=== PATIENT | male | born 1960 | race Caucasian/White ===

== ENCOUNTER 2017-09-14 07:49 | Emergency (ER) | payer MEDICARE ==
--- NOTE | 2017-09-14 08:24 | ER Document Report ---
ED Fall - General Chief Complaint: Fall Stated Complaint: FALL/FOREHEAD LACERATION Time Seen by Provider: 09/14/17 08:23 Mode of Arrival: Ambulatory Information source: Patient TRAVEL OUTSIDE OF THE [place] IN LAST 30 DAYS: No - HPI Notes: 57 yr old male presented to the ED with complaints of laceation to forehead. Pt reports that at 0330 this morning he got up to go to the bathroom, slipped on rug and hit head directly on edge of sink. No [id number] medications have been tried. Patient does not take blood thinners. Pt reports pain 3/5. Pt has 3-4cm long, 1/4 deep linear laceration with well approximated edges on right upper forehead. Dried blood present on face. Laceration has small amount of bleeding present at this time. No swelling or bruising present at the injury site. Denies fevers, chills, chest pain,palpitations, shortness of breath, dyspnea, nausea, vomiting, diarrhea, abdominal pain, hematuria,blurred vision, double vision, loss of vision, speech changes, LH, dizziness, syncope, headaches , wheezing, ST, URI, neck pain, weakness, bowel or bladder dysfunction, saddle anesthesia, numbness or tingling in bilateral upper or lower extremities equally , muscle paralysis, weakness in bilateral upper or lower extremities equally or rash. Denies IV drug use. - Related data Allergies/Adverse Reactions: No Known Allergies Allergy (Verified 09/14/17 07:49) Past Medical History - General Information source: Patient - Social History Smoking Status: Unknown if Ever Smoked Family History: Reviewed & Not Pertinent - Past Medical History Cardiac Medical History: Reports: Hx Hypertension Denies: Hx Coronary Artery Disease, Hx Heart Attack Pulmonary Medical History: Reports: Hx Bronchitis - HX (child) Denies: Hx Asthma, Hx COPD, Hx Pneumonia Neurological Medical History: Denies: Hx Cerebrovascular Accident, Hx Seizures GI Medical History: Reports: Hx Gastroesophageal Reflux Disease. Denies: Hx Hepatitis, Hx Hiatal Hernia, Hx Ulcer Musculoskeltal Medical History: Denies Hx Arthritis Psychiatric Medical History: Reports: Hx Depression, Hx Post Traumatic Stress Disorder Infectious Medical History: Denies: Hx Hepatitis Past Surgical History: Denies: Hx Open Heart Surgery, Hx Pacemaker - Immunizations Hx Diphtheria, Pertussis, Tetanus Vaccination: Yes Review of Systems - Review of Systems Constitutional: No symptoms reported EENT: No symptoms reported Cardiovascular: No symptoms reported Respiratory: No symptoms reported Gastrointestinal: No symptoms reported Genitourinary: No symptoms reported Male Genitourinary: No symptoms reported Musculoskeletal: No symptoms reported Skin: See HPI Hematologic/Lymphatic: No symptoms reported Neurological/Psychological: No symptoms reported Physical Exam - Vital signs Vitals: Temp Pulse Resp BP Pulse Ox 98.1 F 106 H 18 115/78 98 09/14/17 08:15 09/14/17 08:15 09/14/17 08:15 09/14/17 08:15 09/14/17 08:15 - Notes Notes: PHYSICAL EXAMINATION: GENERAL: Well-appearing, well-nourished and in no acute distress. HEAD: Atraumatic, normocephalic. EYES: Pupils equal round and reactive to light, extraocular movements intact, sclera anicteric, conjunctiva are normal. ENT: Nares patent, oropharynx clear without exudates. Moist mucous membranes. NECK: Normal range of motion, supple without lymphadenopathy LUNGS: Breath sounds clear to auscultation bilaterally and equal. No wheezes rales or rhonchi. HEART: Regular rate and rhythm without murmurs ABDOMEN: Soft, nontender, nondistended abdomen. No guarding, no rebound. No masses appreciated. Musculoskeletal: Normal range of motion, no pitting or edema. No cyanosis. NEUROLOGICAL: Cranial nerves grossly intact. Normal speech, normal gait. Normal sensory, motor exams. PERRLA, EOMI. Full motor and sensory function throughout. Lathe Mechanic + 2 equal bilaterally in BUE. Tongue midline. No pronator drift. No ataxia. Neck with APROM. Raises eyebrows. Speaks in full sentences. No weakness on one side. Romberg gait steady able to walk straight line. Able to recall 5 objects. PSYCH: Normal mood, normal affect. SKIN: Warm, Dry, normal turgor, no rashes or lesions noted. 4 cm linear laceration with one fourth depth to right upper forehead. Course - Re-evaluation Re-evalutation: Discussed the results of the radiology as well as the diagnosis at great length. CT head and orbits negative for any acute findings per radiology. Discussed the need to return to the ER for any new or worsening sx. Patient understands to take the Rx as directed. All questions answered. Patient comfortable with the decision to go home. discussed concussion protocol such as being woken up every hour by someone you live with, be asked orientation questions and to call 911 if any neurological changes occur such as speech changes, weakness on one side, unable to orient, nausea, vomiting, or severe headache, etc. pt verbalized understanding of this care and agreed to plan of care. discussed worrisome symptoms as well as reasons for return over what time frame. patient states understanding and is agreeable with plan. After performing a Medical Screening Examination, I estimate there is LOW risk for INTRACRANIAL HEMORRHAGE, UNSTABLE SPINE FRACTURE, CENTRAL CORD SYNDROME, CAUDA EQUINA, THORACIC AORTIC DISSECTION, PNEUMOTHORAX, PERFORATED BOWEL, RUPTURED ABDOMINAL AORTIC ANEURYSM, ACUTE TENDON RUPTURE, COMPARTMENT SYNDROME, or OPEN FRACTURE, thus I consider the discharge disposition reasonable. Also, there is no evidence or peritonitis, sepsis, or toxicity. I have reevaluated this patient multiple times and no significant life threatening changes are noted. The patient and I have discussed the diagnosis and risks, and we agree with discharging home to follow-up with their primary doctor with the understanding that symptoms and presentations can change. We also discussed returning to the Emergency Department immediately if new or worsening symptoms occur. We have discussed the symptoms which are most concerning (e.g., bloody stool, fever, changing or worsening pain, vomiting) that necessitate immediate return. After performing a Medical Screening Examination, I estimate there is LOW risk for OPEN FRACTURE, COMPARTMENT SYNDROME, TENDON RUPTURE, ACUTE NEUROVASCULAR INJURY, or RETAINED FOREIGN BODY, thus I consider the discharge disposition reasonable. Also, there is no evidence or peritonitis, sepsis, or toxicity. I have reevaluated this patient multiple times and no significant life threatening changes are noted. The patient and I have discussed the diagnosis and risks, and we agree with discharging home with close follow-up with the understanding that symptoms and presentations can change. We also discussed returning to the Emergency Department immediately if new or worsening symptoms occur. We have discussed the symptoms which are most concerning (e.g., changing or worsening pain, fever, numbness, weakness, cool or painful digits) that necessitate immediate return. - Vital Signs Vital signs: Temp Pulse Resp BP Pulse Ox 98.3 F 84 18 120/70 98 09/14/17 10:25 09/14/17 10:25 09/14/17 10:25 09/14/17 10:25 09/14/17 10:25 Procedures - Laceration/Wound Repair Head Time completed: 09:33 Wound length (cm): 6 - vm Wound's Depth, Shape: Linear Laceration pre-procedure: Sterile PPE donned, Betadine prep applied, Sterile drapes applied Irrigated w/ Saline (mLs): 700 - mL of high pressure irrigation Wound Debrided: Minimal Wound Repaired With: Dermabond Post-procedure wound care: Sterile dressing applied Post-procedure NV exam normal: Yes Notes: 09/14/17 09:34 High-pressure irrigation was 700 and also has normal saline. no foreign bodies noted on exploration of the wound. Wound edges well approximated with Dermabond.5 Steri-Strips placed. Pt tolerated procedure without incident. Advised patient to monitor for signs and symptoms of infection such as redness, swelling, drainage, pain. Do not get Dermabond wet for the first 24 hours. Steri-Strips were naturally fall off Discharge - Discharge Clinical Impression: Laceration of head Qualifiers: Encounter type: initial encounter Location of open wound of head: other part of head Foreign body presence: without foreign body Qualified Code(s): S01.81XA - Laceration without foreign body of other part of head, initial encounter Condition: Good Disposition: HOME, SELF-CARE Instructions: Concussion ([facility]), Laceration Care ([facility]) Additional Instructions: Head Injury Your child's examination shows no evidence of brain injury. The child can therefore be safely observed at home. Give clear liquids only for the first eight hours. Acetaminophen or ibuprofen can safely be given for pain. Follow the directions on the bottle. Do not give any medication that may alter her/his level of alertness. Limit activity for the first 24 hours -- bed rest is advisable at first. Several times during the first 24 hours, check the patient to see if the pupils are equal in size to each other, that the patient is easily arousable, and responds normally. Contact your doctor or go to the hospital if any of the following things occur: Persistent or projectile vomiting, a seizure, confusion , unequal pupil size, difficulty in arousing the patient, worsening or continued headache, or failure to improve as expected. Dermabond (Skin Adhesive Closure) Skin adhesive (such as Dermabond) is a quick-drying glue that remains slightly flexible while it holds wound edges together. It can substitute for stitches on some cuts. The film will usually fall off the skin after 5 to 10 days. Keep the wound area clean and dry. Do not soak or scrub the wound. Don't swim. You can shower briefly after 24 hours. Gently blot the area dry with a soft towel. Don't apply ointments. If there is a dressing, change it immediately if it gets wet. Do not place tape directly over the adhesive film, because the tape may pull the film off your skin as you remove it. Don't bump the wound area. If there's risk of injury, keep the area well- padded. Avoid stretching of the skin. Do not scratch or pick at the adhesive film. Avoid prolonged exposure to sunlight or tanning lamps. Return if there is increasing pain, swelling, redness, or drainage, or if the wound edges seem to open or separate. Take antibiotic as directed with food. Have a wound check within 3 days. Take ibuprofen and Tylenol as needed. Return immediately for any new or worsening symptoms. Follow up with primary care provider, call tomorrow to make followup appointment. Prescriptions: Sulfamethoxazole/Trimethoprim [Bactrim Ds Tablet] 1 each PO BID #20 tablet Sulfamethoxazole/Trimethoprim [Bactrim Ds Tablet] 1 each PO BID #14 tablet Referrals: VALERIY BRYANT DO [Primary Care Provider] - Follow up in 3-5 days JASKARAN GARCIA MD [ACTIVE STAFF] - Follow up as needed
--- NOTE | 2017-09-14 09:24 | RADIOLOGY REPORT (SQ) ---
EXAM DESCRIPTION: CT HEAD WITHOUT COMPLETED DATE/TIME: 09/14/2017 9:04 am REASON FOR STUDY: s/p fall on forehead + lac. COMPARISON: CT facial bones same date TECHNIQUE: Axial images acquired through the brain without intravenous contrast. Images reviewed wi th bone, brain and subdural windows. Images stored on PACS. All CT scanners at this facility use dose modulation, iterative reconstruction, and/or weight based d osing when appropriate to reduce radiation dose to as low as reasonably achievable (ALARA). [facility]: Dose Right [facility]: CareDose [facility]: Dose Right [facility]: Teradose 4D [facility]: Smart ALCOHOOT RADIATION DOSE: CT Rad equipment meets quality standard of care and radiation dose reduction techniq ues were employed. CTDIvol: 64.3 mGy. DLP: 1034 mGy-cm. mGy. LIMITATIONS: Motion artifact throughout the study FINDINGS: Motion artifact throughout the study. On images without motion artifact, there is no gross acute intracranial hemorrhage, mass effect, or m idline shift. No gross CT evidence of acute large territory ischemic change. Bone windows are unremarkable IMPRESSION: Motion artifact. Limited negative study EVIDENCE OF ACUTE STROKE: NO. COMMENT: Quality ID # [id number]: Final reports with documentation of one or more dose reduction techniques (e.g., Automated exposure control, adjustment of the mA and/or kV according to patient size, use of iterative reconstruction technique) TECHNICAL DOCUMENTATION: JOB ID: [id number] [employer]- All Rights Reserved
--- NOTE | 2017-09-14 09:26 | RADIOLOGY REPORT (SQ) ---
EXAM DESCRIPTION: CT FACIAL AREA WITHOUT COMPLETED DATE/TIME: 09/14/2017 9:04 am REASON FOR STUDY: forehead and bilateral orbits COMPARISON: CT brain same date TECHNIQUE: Noncontrasted images through the facial bones and orbits windowed for bone and soft tissu e. Additional coronal and sagittal reconstructed images reviewed. All images stored on PACS. All CT scanners at this facility use dose modulation, iterative reconstruction, and/or weight based d osing when appropriate to reduce radiation dose to as low as reasonably achievable (ALARA). [facility]: Dose Right [facility]: CareDose [facility]: Dose Right [facility]: Teradose 4D [facility]: Smart [employer] RADIATION DOSE: CT Rad equipment meets quality standard of care and radiation dose reduction techniq ues were employed. CTDIvol: 30.4 mGy. DLP: 606 mGy-cm. mGy. LIMITATIONS: None. FINDINGS: FACIAL BONES: No fracture or bone lesion. ORBITS: Intact. No fracture. Symmetric intact globes and retroorbital soft tissues. PARANASAL SINUSES: Clear. No significant mucosal thickening, mass or fluid. No nasal polyps. Maxill len sinus outlets are patent. Developmentally small right maxillary sinus, a normal variant. SOFT TISSUES: No mass or edema. INFERIOR BRAIN: Limited view. No acute findings. OTHER: Rightward nasal septal deviation. Old C3-4 discectomy and fusion with high-grade right C3-4 f oraminal narrowing from facet and uncovertebral hypertrophy IMPRESSION: NO ACUTE FINDINGS. TECHNICAL DOCUMENTATION: JOB ID: [id number] Quality ID # [id number]: Final reports with documentation of one or more dose reduction techniques (e.g., Au tomated exposure control, adjustment of the mA and/or kV according to patient size, use of iterative reconstruction technique) 2010 [employer]- All Rights Reserved
[2017-09-14] MEDS ORDERED: DIPH/PERTUSS(ACELL)/TETANUS VAC/PF 0.5 ML SYR (>=10YO) IM ONE (09:36)
[2017-09-14 10:26] VITALS: BP 120/70
== END 2017-09-14 10:26 | disposition home or self-care (01) ==
LOC: ER 07:49
PROC: 0HQ0XZZ Repair Scalp Skin, External Approach (ICD-10-PCS; principal; 2017-09-14)
DX: S01.81XA Laceration without foreign body of other part of head, initial encounter (principal); W01.0XXA Fall on same level from slipping, tripping and stumbling without subsequent striking against object, initial encounter
CPT/HCPCS: 70450; 70486; 90471; 90715; 99283

== ENCOUNTER 2019-09-29 15:44 | Inpatient (IN) | payer MEDICARE ==
--- NOTE | 2019-09-29 16:15 | ER Document Report ---
ED General - General Chief Complaint: Back Pain Stated Complaint: BACK PAIN Time Seen by Provider: 09/29/19 16:14 Primary Care Provider: VALERIY BRYANT DO [NO LOCAL MD] - Follow up as needed TRAVEL OUTSIDE OF THE [place] IN LAST 30 DAYS: No - HPI Patient complains to provider of: Back pain Notes: 59-year-old man suffers from chronic back pain presents today with an exacerbation of his chronic condition endorsing 10/10 sharp right-sided back pain with radiation to the posterior aspect of his right thigh. Nothing makes the pain better or worse. Patient endorsed increasing general weakness as well as this pain. So weak he was unable to get out of bed today. Patient is followed by pain management. Has recently had injections to his lower back that helped. Patient was scheduled to see pain management today. But unable to make it to the appointment secondary to pain and weakness. Patient denies saddle anesthesia, fever, chills, trauma to his back. Patient does not take any blood thinners or use IV drugs Patient has history of COPD and is an everyday smoker 1 pack per day. Has no travel history, no sick contacts - Related Data Allergies/Adverse Reactions: No Known Allergies Allergy (Verified 09/14/17 07:49) Past Medical History - Social History Smoking Status: Current Every Day Smoker Family History: Reviewed & Not Pertinent - Past Medical History Cardiac Medical History: Reports: Hx Hypertension Denies: Hx Coronary Artery Disease, Hx Heart Attack Pulmonary Medical History: Reports: Hx Bronchitis - HX (child) Denies: Hx Asthma, Hx COPD, Hx Pneumonia Neurological Medical History: Denies: Hx Cerebrovascular Accident, Hx Seizures Renal/ Medical History: Denies: Hx Peritoneal Dialysis GI Medical History: Reports: Hx Gastroesophageal Reflux Disease. Denies: Hx Hepatitis, Hx Hiatal Hernia, Hx Ulcer Musculoskeletal Medical History: Denies Hx Arthritis Psychiatric Medical History: Reports: Hx Depression, Hx Post Traumatic Stress Disorder Infectious Medical History: Denies: Hx Hepatitis Past Surgical History: Denies: Hx Open Heart Surgery, Hx Pacemaker - Immunizations Hx Diphtheria, Pertussis, Tetanus Vaccination: Yes Review of Systems - Review of Systems Notes: REVIEW OF SYSTEMS: CONSTITUTIONAL: -fevers, -chills , positive weakness EENT: -eye pain, -difficulty swallowing, -nasal congestion CARDIOVASCULAR: -chest pain, -syncope. RESPIRATORY: -cough, -SOB GASTROINTESTINAL: -abdominal pain, -nausea, -vomiting, -diarrhea GENITOURINARY: -dysuria, -hematuria MUSCULOSKELETAL: positive back pain, -neck pain SKIN: -rash or skin lesions. HEMATOLOGIC: -easy bruising or bleeding. LYMPHATIC: -swollen, enlarged glands. NEUROLOGICAL: -altered mental status or loss of consciousness, -headache, - neurologic symptoms PSYCHIATRIC: -anxiety, -depression. ALL OTHER SYSTEMS REVIEWED AND NEGATIVE. Constitutional: No symptoms reported EENT: No symptoms reported Cardiovascular: No symptoms reported Respiratory: No symptoms reported Gastrointestinal: No symptoms reported Genitourinary: No symptoms reported Male Genitourinary: No symptoms reported Musculoskeletal: Back pain Skin: No symptoms reported Hematologic/Lymphatic: No symptoms reported Neurological/Psychological: No symptoms reported Physical Exam - Vital signs Vitals: Resp Pulse Ox 22 H 91 L 09/29/19 15:57 09/29/19 15:57 Interpretation: Normal - General General appearance: Appears well, Alert - HEENT Head: Normocephalic, Atraumatic Eyes: Normal Pupils: PERRL - Respiratory Respiratory status: No respiratory distress Chest status: Nontender Breath sounds: Normal Chest palpation: Normal - Cardiovascular Rhythm: Regular Heart sounds: Normal auscultation Murmur: No - Abdominal Inspection: Normal Distension: No distension Bowel sounds: Normal Tenderness: Nontender Organomegaly: No organomegaly - Back Back: Normal, Nontender - Extremities General upper extremity: Normal inspection, Nontender, Normal color, Normal ROM, Normal temperature General lower extremity: Normal inspection, Nontender, Normal color, Normal ROM, Normal temperature, Normal weight bearing. No: Berry's sign - Neurological Neuro grossly intact: Yes Cognition: Normal Orientation: AAOx4 [place] Coma Scale Eye Opening: Spontaneous [place] Coma Scale Verbal: Oriented [place] Coma Scale Motor: Obeys Commands [place] Coma Scale Total: 15 Speech: Normal Motor strength normal: LUE, RUE, LLE, RLE Sensory: Normal - Psychological Associated symptoms: Normal affect, Normal mood - Skin Skin Temperature: Warm Skin Moisture: Dry Skin Color: Normal Course - Re-evaluation Re-evalutation: 09/29/19 16:23 59-year-old male presents with his fatigue and tachycardia will give fluid resuscitation analgesia and IV steroids. Will order lab work as well including CPK. No focal or neurologic deficits, no red flags for back pain. Denies IV drug use 09/29/19 19:15 Patient has no history of travel or fever. Only endorsing myalgias and weakness with back pain. Patient found to have profound leukocytosis, mild elevation in CPK And a lactic acidosis of 2.8. Blood cultures pending at this time. Chest x-ray finds pneumonia right lower lung lobe. Suspect this could be the etiology of his pain. Started on ceftriaxone and IV azithromycin. Will be admitted to the hospital for further management - Vital Signs Vital signs: Temp Pulse Resp BP Pulse Ox 98.3 F 23 H 111/69 91 L 09/29/19 19:05 09/29/19 17:02 09/29/19 17:02 09/29/19 17:02 - Laboratory Result Diagrams: 09/29/19 06:05 09/29/19 06:05 Laboratory results interpreted by me: 09/29/19 09/29/19 09/29/19 06:05 06:05 17:33 WBC 25.9 H RBC 4.13 L Hgb 12.6 L Hct 37.1 L RDW 15.7 H Seg Neuts % (Manual) 80 H Band Neutrophils % 8 H Lymphocytes % (Manual) 8 L Abs Neuts (Manual) 22.8 H Glucose 152 H Lactic Acid Creatine Kinase 384 H Urine Glucose (UA) 50 H 09/29/19 18:20 WBC RBC Hgb Hct RDW Seg Neuts % (Manual) Band Neutrophils % Lymphocytes % (Manual) Abs Neuts (Manual) Glucose Lactic Acid 2.8 H Creatine Kinase Urine Glucose (UA) Discharge - Discharge Clinical Impression: Weakness Back pain Qualifiers: Back pain location: low back pain Chronicity: chronic Back pain laterality: unspecified Sciatica presence: unspecified whether sciatica present Qualified C ode(s): M54.5 - Low back pain Pneumonia Qualifiers: Pneumonia type: due to unspecified organism Laterality: right Lung location: lower lobe of lung Qualified Code(s): J18.9 - Pneumonia, unspecified organism Condition: Serious Disposition: ADMITTED INPATIENT Admitting Provider: Gomez (Hospitalist) Unit Admitted: Medical Floor Referrals: VALERIY BRYANT DO [NO LOCAL MD] - Follow up as needed
[2019-09-29] MEDS ORDERED: HYDROMORPHONE HCL INJ/PF 2 MG/ML AMPULE IV ONE (16:19)
[2019-09-29] MEDS ORDERED: DEXAMETHASONE SOD PHOS INJ 10 MG/1 ML VIAL IV ONE (16:19)
[2019-09-29] MEDS ORDERED: NORMAL SALINE 1000 ML 1,000 ML IV ONE ×2 (16:19→17:31)
[2019-09-29 16:40] LABS: HEMATOCRIT 37.1 % (37.9-51.0); HEMOGLOBIN 12.6 g/dL (13.5-17.0); MEAN CORPUSCULAR HEMOGLOBIN 30.5 pg (27.0-33.4); MEAN CORPUSCULAR HGB CONC 33.9 g/dL (32.0-36.0); MEAN CORPUSCULAR VOLUME 90 fl (80-97); PLATELET COUNT 361 10^3/uL (150-450); RED BLOOD COUNT 4.13 10^6/uL (4.35-5.55); RED CELL DISTRIBUTION WIDTH 15.7 % (11.5-14.0); WHITE BLOOD COUNT 25.9 10^3/uL (4.0-10.5)
[2019-09-29 16:41] LABS: ANION GAP 13 (5-19); BLOOD UREA NITROGEN 18 mg/dL (7-20); CALCIUM 8.7 mg/dL (8.4-10.2); CARBON DIOXIDE 23 mmol/L (22-30); CHLORIDE 103 mmol/L (98-107); CREATINE KINASE 384 U/L (55-170); GLUCOSE 152 mg/dL (75-110); POTASSIUM 3.7 mmol/L (3.6-5.0)
[2019-09-29 17:11] LABS: ABSOLUTE LYMPHOCYTES# (MANUAL) 2.3 10^3/uL (0.5-4.7); ABSOLUTE MONOCYTES # (MANUAL) 0.8 10^3/uL (0.1-1.4); BAND NEUTROPHILS % (MANUAL) 8 % (3-5); BASOPHILS % (MANUAL) 0 % (0-2); EOSINOPHILS % (MANUAL) 0 % (0-6); LYMPHOCYTES % (MANUAL) 8 % (13-45); MONOCYTES % (MANUAL) 3 % (3-13); SEGMENTED NEUTROPHILS % (MAN) 80 % (42-78); TOTAL CELLS COUNTED 100
[2019-09-29 17:12] LABS: TOXIC GRANULATION SLIGHT
[2019-09-29 17:13] LABS: ANISOCYTOSIS SLIGHT; PLATELET COMMENT ADEQUATE; TOXIC VACUOLATION PRESENT
[2019-09-29 17:48] LABS: APPEARANCE,URINE CLEAR; BILIRUBIN,URINE NEGATIVE (NEGATIVE); COLOR,URINE YELLOW; GLUCOSE, URINE 50 mg/dL (NEGATIVE); KETONES,URINE NEGATIVE (NEGATIVE); PROTEIN,URINE NEGATIVE (NEGATIVE); URINE SPECIFIC GRAVITY 1.021; UROBILINOGEN,URINE NEGATIVE mg/dL (<2.0)
--- NOTE | 2019-09-29 18:28 | RADIOLOGY REPORT (SQ) ---
EXAM DESCRIPTION: CHEST SINGLE VIEW COMPLETED DATE/TIME: 09/29/2019 5:45 pm REASON FOR STUDY: sob COMPARISON: 02/18/2014 EXAM PARAMETERS: NUMBER OF VIEWS: One view. TECHNIQUE: Single frontal radiographic view of the chest acquired. RADIATION DOSE: NA LIMITATIONS: None. FINDINGS: LUNGS AND PLEURA: Patchy airspace opacities in the right lung base. No definite pleural e ffusions. MEDIASTINUM AND HILAR STRUCTURES: No masses. Contour normal. HEART AND VASCULAR STRUCTURES: Heart normal in size. Normal vasculature. BONES: No acute findings. HARDWARE: None in the chest. OTHER: No other significant finding. IMPRESSION: Patchy airspace opacities in the right lung base, consistent with pneumonia in the corre ct clinical setting. TECHNICAL DOCUMENTATION: JOB ID: [id number] 2010 [employer]- All Rights Reserved Reading location - IP/workstation name: [email or web address]
[2019-09-29] MEDS ORDERED: CEFTRIAXONE 2 GM/D5W RTU 2 GM/50 ML RTUPB IV ONE (18:36)
[2019-09-29] MEDS ORDERED: AZITHROMYCIN INJ 500 MG VIAL IV ONE (18:37)
[2019-09-29] MEDS ORDERED: IPRATROPIUM/ALBUTEROL 0.5-2.5 MG/3 ML AMPUL NEB PRN (19:13)
[2019-09-29] MEDS ORDERED: NORMAL SALINE 1000 ML 1,000 ML IV SCH (19:15)
[2019-09-29] MEDS ORDERED: DEXTROSE 40% GEL 15 GM TUBE PO PRN ×2 (19:18)
[2019-09-29] MEDS ORDERED: GLUCAGON,HUMAN RECOMB 1 MG INJ IM PRN (19:18)
[2019-09-29] MEDS ORDERED: DEXTROSE 50%-WATER 25 GM/50 ML DISP.SYRIN IV PRN ×2 (19:18)
[2019-09-29] MEDS ORDERED: HYDRALAZINE HCL INJ/PF 20 MG/1 ML SDV IV PRN (19:19)
[2019-09-29] MEDS: INSULIN LISPRO 100 UNIT/ML 3 ML VIAL SUBCUT SCH (19:43)
[2019-09-29] MEDS: KETOROLAC TROMETHAMINE INJ/PF 30 MG/1 ML SDV IV PRN (19:54)
[2019-09-29] MEDS: GUAIFENESIN 600 MG TABLET.SA PO SCH (23:32)
[2019-09-29] MEDS: TRAZODONE HCL 50 MG TABLET PO PRN (23:32)
[2019-09-29] MEDS: ACETAMINOPHEN 325 MG TABLET PO PRN (23:32)
[2019-09-29] MEDS: ALPRAZOLAM 0.25 MG TABLET PO PRN (23:32)
[2019-09-29] MEDS: HEPARIN SOD (PORCINE) 5,000 UNIT/ML 1 ML VIAL SUBCUT SCH (23:33)
[2019-09-29] MEDS: FLUTICASONE NASAL SPRAY 50 MCG/SPRY 120 SPRAY/16 GM NASL SCH (23:33)
[2019-09-30] MEDS ORDERED: NICOTINE 7 MG/24 HR PATCH.TD24 TD ONE (00:15)
[2019-09-30] MEDS: IPRATROPIUM/ALBUTEROL 0.5-2.5 MG/3 ML AMPUL NEB SCH ×3 (00:34→16:32)
[2019-09-30] MEDS: KETOROLAC TROMETHAMINE INJ/PF 30 MG/1 ML SDV IV PRN ×3 (01:56→22:16)
--- NOTE | 2019-09-30 03:45 | PDOC H&P ---
History of Present Illness Admission Date/PCP: 09/29/19 19:24 Patient complains of: Back pain and fatigue History of Present Illness: SEAMUS COBURN is a 59 year old male with a past medical history of chronic low back pain, COPD, chronic bronchitis and tobacco dependence. He presents with shortness of breath and a nonproductive cough as well as exacerbation of his chronic low back pain. In the emergency room he is found to have tachypnea, nonproductive cough, leukocytosis with bandemia and right-sided lung patchy infiltrate. He started on empiric antibiotics and referred to the hospitalist for admission. He denies recent antibiotics, he denies recent travel, exposure to known coronavirus. Past Medical History Cardiac Medical History: Reports: Hypertension Denies: Coronary Artery Disease, Myocardial Infarction Pulmonary Medical History: Reports: Bronchitis - HX (child), Chronic Obstructive Pulmonary Disease (COPD) Denies: Asthma, Pneumonia Neurological Medical History: Denies: Seizures Endocrine Medical History: Reports: Diabetes Mellitus Type 2 GI Medical History: Reports: Gastroesophageal Reflux Disease Denies: Hepatitis, Hiatal Hernia Musculoskeltal Medical History: Denies: Arthritis Psychiatric Medical History: Reports: Depression, Post Traumatic Stress Disorder, Tobacco Dependency Hematology: Denies: Anemia, Sickle Cell Disease Past Surgical History Past Surgical History: Reports: Orthopedic Surgery - r knee, r hand, disc surgery 03/2019 Denies: Pacemaker Social History Information Source: Patient Smoking Status: Current Every Day Smoker Electronic Cigarette use?: No Frequency of Alcohol Use: Occasional Hx Recreational Drug Use: No Drugs: None Hx Prescription Drug Abuse: No - Advance Directive Resuscitation Status: Full Code Family History Family History: Hypertension Parental Family History Reviewed: Yes Children Family History Reviewed: Yes Sibling(s) Family History Reviewed.: Yes Medication/Allergy Home Medications: Alprazolam 0.5 mg PO BIDP PRN MDD 2 MG 09/29/19 Bupropion HCl [Bupropion Xl] 150 mg PO DAILY 09/29/19 Fluoxetine HCl [Prozac 20 mg Capsule] 60 mg PO DAILY 09/29/19 Gabapentin [Neurontin 300 mg Capsule] 300 mg PO QID 09/29/19 Lisinopril/Hydrochlorothiazide [Lisinopril-Hctz 20-12.5 mg Tab] 1 each PO DAILY 09/29/19 Meloxicam [Mobic 15 mg Tablet] 15 mg PO DAILY 09/29/19 Metformin HCl [Glucophage 500 mg Tablet] 1,000 mg PO BIDACBS 09/29/19 Omeprazole 20 mg PO DAILY 09/29/19 Trazodone HCl [Desyrel 50 mg Tablet] 100 mg PO HSP PRN MDD 200 MG 09/29/19 Allergies/Adverse Reactions: No Known Allergies Allergy (Verified 09/14/17 07:49) Review of Systems Constitutional: ABSENT: chills, fever(s), headache(s), weight gain, weight loss Eyes: ABSENT: visual disturbances Ears: ABSENT: hearing changes Cardiovascular: ABSENT: chest pain, dyspnea on exertion, edema, orthropnea, palpitations Respiratory: PRESENT: as per HPI, cough. ABSENT: hemoptysis, sputum Gastrointestinal: ABSENT: abdominal pain, constipation, diarrhea, hematemesis, hematochezia, nausea, vomiting Genitourinary: ABSENT: dysuria, hematuria Musculoskeletal: ABSENT: joint swelling Integumentary: ABSENT: rash, wounds Neurological: ABSENT: abnormal gait, abnormal speech, confusion, dizziness, focal weakness, syncope Psychiatric: ABSENT: anxiety, depression, homidical ideation, suicidal ideation Endocrine: ABSENT: cold intolerance, heat intolerance, polydipsia, polyuria Hematologic/Lymphatic: ABSENT: easy bleeding, easy bruising Physical Exam Vital Signs: Temp Pulse Resp BP Pulse Ox 98.1 F 91 16 153/86 H 98 09/30/19 00:23 09/30/19 02:00 09/30/19 00:30 09/30/19 00:23 09/30/19 00:44 Intake & Output 09/28/19 09/29/19 09/30/19 11:59 11:59 11:59 Intake Total 2307 Output Total 0 Balance 2307 Weight 88.1 kg General appearance: PRESENT: cooperative, mild distress, well-developed, well- nourished Head exam: PRESENT: atraumatic, normocephalic Eye exam: PRESENT: conjunctiva pink, EOMI, PERRLA. ABSENT: scleral icterus Ear exam: PRESENT: normal external ear exam Mouth exam: PRESENT: moist, tongue midline Neck exam: ABSENT: carotid bruit, JVD, lymphadenopathy, thyromegaly Respiratory exam: PRESENT: accessory muscle use, clear to auscultation glen, crackles, prolonged expiratory phas, retraction, rhonchi. ABSENT: rales, wheezes Cardiovascular exam: PRESENT: RRR. ABSENT: diastolic murmur, rubs, systolic murmur Pulses: PRESENT: normal dorsalis pedis pul Vascular exam: PRESENT: normal capillary refill GI/Abdominal exam: PRESENT: normal bowel sounds, soft. ABSENT: distended, guarding, mass, organolmegaly, rebound, tenderness Rectal exam: PRESENT: deferred Extremities exam: PRESENT: full ROM. ABSENT: calf tenderness, clubbing, pedal edema Neurological exam: PRESENT: alert, awake, oriented to person, oriented to place, oriented to time, oriented to situation, CN II-XII grossly intact. ABSENT: motor sensory deficit Psychiatric exam: PRESENT: appropriate affect, normal mood. ABSENT: homicidal i deation, suicidal ideation Skin exam: PRESENT: dry, intact, warm. ABSENT: cyanosis, rash Results Laboratory Results: 09/29/19 06:05 09/29/19 06:05 09/29/19 09/29/19 09/29/19 06:05 06:05 17:33 WBC 25.9 H RBC 4.13 L Hgb 12.6 L Hct 37.1 L MCV 90 MCH 30.5 MCHC 33.9 RDW 15.7 H Plt Count 361 Seg Neutrophils % Not Reportable Sodium 138.5 Potassium 3.7 Chloride 103 Carbon Dioxide 23 Anion Gap 13 BUN 18 Creatinine 0.81 Est GFR ( Amer) > 60 Glucose 152 H Lactic Acid Calcium 8.7 Urine Color YELLOW Urine Appearance CLEAR Urine pH 5.0 Ur Specific [place] 1.021 Urine Protein NEGATIVE Urine Glucose (UA) 50 H Urine Ketones NEGATIVE Urine Blood NEGATIVE Urine RBC (Auto) 0 09/29/19 18:20 WBC RBC Hgb Hct MCV MCH MCHC RDW Plt Count Seg Neutrophils % Sodium Potassium Chloride Carbon Dioxide Anion Gap BUN Creatinine Est GFR ( Amer) Glucose Lactic Acid 2.8 H Calcium Urine Color Urine Appearance Urine pH Ur Specific [place] Urine Protein Urine Glucose (UA) Urine Ketones Urine Blood Urine RBC (Auto) 09/29/19 06:05 Creatine Kinase 384 H Impressions: Chest X-Ray 09/29/19 17:35 IMPRESSION: Patchy airspace opacities in the right lung base, consistent with pneumonia in the correct clinical setting. Assessment and Plan - Diagnosis (1) Pneumonia Qualifiers: Pneumonia type: due to unspecified organism Laterality: right Lung location: lower lobe of lung Qualified Code(s): J18.9 - Pneumonia, unspecified organism Is this a current diagnosis for this admission?: Yes Plan: Complicated by COPD, chronic bronchitis and tobacco dependence. Pneumonia care set deployed, incentive spirometry and flutter valve, follow-up blood culture and CBC (2) Bandemia Is this a current diagnosis for this admission?: Yes Plan: Secondary to #1, empiric antibiotics initiated, follow-up CBC and blood culture (3) Back pain Qualifiers: Back pain location: low back pain Chronicity: chronic Back pain laterality: unspecified Sciatica presence: unspecified whether sciatica present Qualified Code(s): M54.5 - Low back pain; G89.29 - Other chronic pain Is this a current diagnosis for this admission?: Yes Plan: Exacerbation likely secondary to #1, no focal vertebral tenderness (4) Weakness Is this a current diagnosis for this admission?: Yes Plan: Secondary to #1, supportive care, assistance with transfer, consider physical therapy (5) Diabetes 1.5, managed as type 2 Is this a current diagnosis for this admission?: Yes Plan: Follow-up outpatient medication reconciliation, avoid metformin, Humalog sliding scale ordered. - Time Time Spent with patient: 25-34 minutes - Inpatient Certification Medical Necessity: Need Close Monitoring Due to Risk of Patient Decompensation
[2019-09-30] MEDS: HEPARIN SOD (PORCINE) 5,000 UNIT/ML 1 ML VIAL SUBCUT SCH ×3 (05:00→22:18)
[2019-09-30] MEDS: PANTOPRAZOLE SODIUM 20 MG TABLET.DR PO SCH (05:01)
[2019-09-30 05:39] LABS: HEMATOCRIT 33.1 % (37.9-51.0); HEMOGLOBIN 11.4 g/dL (13.5-17.0); MEAN CORPUSCULAR HEMOGLOBIN 30.8 pg (27.0-33.4); MEAN CORPUSCULAR HGB CONC 34.4 g/dL (32.0-36.0); MEAN CORPUSCULAR VOLUME 90 fl (80-97); PLATELET COUNT 275 10^3/uL (150-450); RED CELL DISTRIBUTION WIDTH 15.8 % (11.5-14.0); WHITE BLOOD COUNT 21.7 10^3/uL (4.0-10.5)
[2019-09-30 06:03] LABS: ANION GAP 10 (5-19); BLOOD UREA NITROGEN 20 mg/dL (7-20); CALCIUM 7.8 mg/dL (8.4-10.2); CARBON DIOXIDE 25 mmol/L (22-30); CHLORIDE 104 mmol/L (98-107); GLUCOSE 119 mg/dL (75-110); POTASSIUM 3.6 mmol/L (3.6-5.0)
[2019-09-30 06:22] LABS: ABSOLUTE LYMPHOCYTES# (MANUAL) 1.3 10^3/uL (0.5-4.7); ABSOLUTE MONOCYTES # (MANUAL) 1.1 10^3/uL (0.1-1.4); BAND NEUTROPHILS % (MANUAL) 1 % (3-5); BASOPHILS % (MANUAL) 0 % (0-2); EOSINOPHILS % (MANUAL) 0 % (0-6); LYMPHOCYTES % (MANUAL) 6 % (13-45); MONOCYTES % (MANUAL) 5 % (3-13); SEGMENTED NEUTROPHILS % (MAN) 88 % (42-78); TOTAL CELLS COUNTED 100
[2019-09-30 06:23] LABS: TOXIC GRANULATION SLIGHT
[2019-09-30 06:24] LABS: ANISOCYTOSIS SLIGHT; PLATELET COMMENT ADEQUATE
[2019-09-30] MEDS ORDERED: METFORMIN HCL 500 MG TABLET PO SCH (08:00)
[2019-09-30] MEDS: INSULIN LISPRO 100 UNIT/ML 3 ML VIAL SUBCUT SCH ×3 (08:14→15:51)
[2019-09-30] MEDS: ACETAMINOPHEN 325 MG TABLET PO PRN (09:03)
[2019-09-30] MEDS: GABAPENTIN 300 MG CAPSULE PO SCH ×4 (09:03→22:17)
[2019-09-30] MEDS: GUAIFENESIN 600 MG TABLET.SA PO SCH ×2 (09:04→22:17)
[2019-09-30] MEDS: NICOTINE 7 MG/24 HR PATCH.TD24 TD SCH (09:04)
[2019-09-30] MEDS: FLUOXETINE HCL 20 MG CAPSULE PO SCH (09:04)
[2019-09-30] MEDS: BUPROPION HCL 75 MG TABLET PO SCH ×2 (09:04→22:17)
[2019-09-30] MEDS: FLUTICASONE NASAL SPRAY 50 MCG/SPRY 120 SPRAY/16 GM NASL SCH ×2 (09:05→22:20)
[2019-09-30] MEDS: CEFTRIAXONE 1 GM/D5W RTU 1 GM/50 ML RTUPB IV SCH (09:25)
--- NOTE | 2019-09-30 11:07 | PDOC PROGRESS REPORT ---
Subjective Progress Note for:: 09/30/19 Subjective:: 59 year old male with a past medical history of chronic low back pain, COPD, chronic bronchitis and tobacco dependence. He presents with shortness of breath and a nonproductive cough as well as exacerbation of his chronic low back pain. In the emergency room he is found to have tachypnea, nonproductive cough, leukocytosis with bandemia and right-sided lung patchy infiltrate. He started on empiric antibiotics and referred to the hospitalist for admission. He denies recent antibiotics, he denies recent travel, exposure to known coronavirus. 09/[id number] male with chronic lower back pain, COPD, chronic bronchitis, chronic smoker admitted with shortness of breath and nonproductive cough. He was found to be tachycardic tachypneic with elevated WBC count and chest x-ray indicated above right base pneumonia. He was admitted for antibiotic therapy. Reason For Visit: COPD EXACERBATION,PNEUMONIA Physical Exam Vital Signs: Temp Pulse Resp BP Pulse Ox 97.9 F 72 16 145/93 H 94 09/30/19 07:12 09/30/19 08:00 09/30/19 08:00 09/30/19 07:12 09/30/19 08:00 Intake & Output 09/29/19 09/30/19 10/01/19 06:59 06:59 06:59 Intake Total 2527 50 Output Total 0 Balance 2527 50 Weight 90.6 kg General appearance: PRESENT: no acute distress, obese, well-developed Head exam: PRESENT: atraumatic Eye exam: PRESENT: PERRLA Mouth exam: PRESENT: moist, tongue midline Teeth exam: PRESENT: poor dentation Neck exam: ABSENT: carotid bruit, JVD, lymphadenopathy, thyromegaly Respiratory exam: PRESENT: decreased breath sounds Cardiovascular exam: PRESENT: RRR. ABSENT: diastolic murmur, rubs, systolic murmur Pulses: PRESENT: normal dorsalis pedis pul GI/Abdominal exam: PRESENT: normal bowel sounds, soft. ABSENT: distended, guarding, mass, organolmegaly, rebound, tenderness Rectal exam: PRESENT: deferred Extremities exam: PRESENT: full ROM. ABSENT: calf tenderness, clubbing, pedal edema Neurological exam: PRESENT: alert, awake, oriented to person, oriented to place, oriented to time, oriented to situation, CN II-XII grossly intact. ABSENT: motor sensory deficit Psychiatric exam: PRESENT: appropriate affect, normal mood. ABSENT: homicidal ideation, suicidal ideation Results Laboratory Results: 09/30/19 03:51 09/30/19 03:51 09/29/19 09/29/19 09/29/19 06:05 06:05 17:33 WBC 25.9 H RBC 4.13 L Hgb 12.6 L Hct 37.1 L MCV 90 MCH 30.5 MCHC 33.9 RDW 15.7 H Plt Count 361 Seg Neutrophils % Not Reportable Sodium 138.5 Potassium 3.7 Chloride 103 Carbon Dioxide 23 Anion Gap 13 BUN 18 Creatinine 0.81 Est GFR ( Amer) > 60 Glucose 152 H Lactic Acid Calcium 8.7 Urine Color YELLOW Urine Appearance CLEAR Urine pH 5.0 Ur Specific [place] 1.021 Urine Protein NEGATIVE Urine Glucose (UA) 50 H Urine Ketones NEGATIVE Urine Blood NEGATIVE Urine RBC (Auto) 0 09/29/19 09/30/19 09/30/19 18:20 03:51 03:51 WBC 21.7 H RBC 3.70 L Hgb 11.4 L Hct 33.1 L MCV 90 MCH 30.8 MCHC 34.4 RDW 15.8 H Plt Count 275 Seg Neutrophils % Not Reportable Sodium 138.8 Potassium 3.6 Chloride 104 Carbon Dioxide 25 Anion Gap 10 BUN 20 Creatinine 0.85 Est GFR ( Amer) > 60 Glucose 119 H Lactic Acid 2.8 H Calcium 7.8 L Urine Color Urine Appearance Urine pH Ur Specific [place] Urine Protein Urine Glucose (UA) Urine Ketones Urine Blood Urine RBC (Auto) 09/29/19 06:05 Creatine Kinase 384 H Impressions: Chest X-Ray 09/29/19 17:35 IMPRESSION: Patchy airspace opacities in the right lung base, consistent with pneumonia in the correct clinical setting. Assessment and Plan - Diagnosis (1) Pneumonia Qualifiers: Pneumonia type: due to unspecified organism Laterality: right Lung location: lower lobe of lung Qualified Code(s): J18.9 - Pneumonia, unspecified organism Is this a current diagnosis for this admission?: Yes Plan: Complicated by COPD, chronic bronchitis and tobacco dependence. Pneumonia care set deployed, incentive spirometry and flutter valve, follow-up blood culture and CBC 09/30/2019-patient admitted with right-sided pneumonia most likely community- acquired pneumonia. Most likely gram-positive organisms responsible. Patient is presently on Zithromax and Rocephin. Plan is to continue the antibiotic therapy. Blood cultures are pending. (2) Back pain Qualifiers: Back pain location: low back pain Chronicity: chronic Back pain lateralit y: unspecified Sciatica presence: unspecified whether sciatica present Qualified Code(s): M54.5 - Low back pain; G89.29 - Other chronic pain Is this a current diagnosis for this admission?: No Plan: Exacerbation likely secondary to #1, no focal vertebral tenderness (3) Bandemia Is this a current diagnosis for this admission?: Yes Plan: Secondary to #1, empiric antibiotics initiated, follow-up CBC and blood culture 09/30/2019-patient came in with a WBC count of more than 25,000 improved to 21,000 today. Co. cytosis most likely secondary to underlying pneumonia. (4) Diabetes 1.5, managed as type 2 Is this a current diagnosis for this admission?: No Plan: Follow-up outpatient medication reconciliation, avoid metformin, Humalog sliding scale ordered. 09/30/2019-patient has history of type 2 diabetes mellitus. Is on metformin at h ome , to hold metformin. To continue insulin sliding scale diet exercise weight loss lifestyle modifications discussed with the patient. Dietary consult will be requested. To check for hemoglobin A1c. (5) Weakness Is this a current diagnosis for this admission?: Yes Plan: Secondary to #1, supportive care, assistance with transfer, consider physical therapy
[2019-09-30] MEDS: AZITHROMYCIN 500 MG in DEXTROSE 5%-WATER 250 ML IV SCH (12:42)
[2019-09-30] MEDS: TRAZODONE HCL 50 MG TABLET PO PRN (22:17)
[2019-09-30] MEDS: ALPRAZOLAM 0.25 MG TABLET PO PRN (22:17)
[2019-10-01] MEDS: IPRATROPIUM/ALBUTEROL 0.5-2.5 MG/3 ML AMPUL NEB SCH ×4 (00:02→23:33)
[2019-10-01 04:36] LABS: ABSOLUTE EOSINOPHILS # (AUTO) 0.2 10^3/uL (0.0-0.6); ABSOLUTE LYMPHOCYTES (AUTO) 2.6 10^3/uL (0.5-4.7); ABSOLUTE MONOCYTES (AUTO) 1.2 10^3/uL (0.1-1.4); ABSOLUTE NEUT (AUTO) 12.3 10^3/uL (1.7-8.2); BASOPHILS % (AUTO) 0.1 % (0-2); HEMATOCRIT 30.1 % (37.9-51.0); HEMOGLOBIN 10.5 g/dL (13.5-17.0); LYMPHOCYTES % (AUTO) 16.2 % (13-45); MEAN CORPUSCULAR HEMOGLOBIN 31.4 pg (27.0-33.4); MEAN CORPUSCULAR VOLUME 90 fl (80-97); MONOCYTES % (AUTO) 7.2 % (3-13); PLATELET COUNT 270 10^3/uL (150-450); RED BLOOD COUNT 3.35 10^6/uL (4.35-5.55); RED CELL DISTRIBUTION WIDTH 16.2 % (11.5-14.0); SEGMENTED NEUTROPHILS % (AUTO) 75.5 % (42-78); TOTAL CELLS COUNTED % (AUTO) 100 %; WHITE BLOOD COUNT 16.3 10^3/uL (4.0-10.5)
[2019-10-01 05:02] LABS: ALBUMIN 2.8 g/dL (3.5-5.0); ALKALINE PHOSPHATASE 56 U/L (38-126); ANION GAP 9 (5-19); ASPARTATE AMINO TRANSFERASE 25 U/L (17-59); BILIRUBIN,DIRECT 0.3 mg/dL (0.0-0.4); BILIRUBIN,TOTAL 0.3 mg/dL (0.2-1.3); BLOOD UREA NITROGEN 16 mg/dL (7-20); CALCIUM 7.9 mg/dL (8.4-10.2); CARBON DIOXIDE 26 mmol/L (22-30); CHLORIDE 104 mmol/L (98-107); GLUCOSE 122 mg/dL (75-110); POTASSIUM 3.3 mmol/L (3.6-5.0); TOTAL PROTEIN 5.4 g/dL (6.3-8.2)
[2019-10-01] MEDS: HEPARIN SOD (PORCINE) 5,000 UNIT/ML 1 ML VIAL SUBCUT SCH ×3 (05:16→21:38)
[2019-10-01] MEDS: PANTOPRAZOLE SODIUM 20 MG TABLET.DR PO SCH (05:18)
[2019-10-01] MEDS: INSULIN LISPRO 100 UNIT/ML 3 ML VIAL SUBCUT SCH ×3 (08:04→18:36)
[2019-10-01] MEDS: KETOROLAC TROMETHAMINE INJ/PF 30 MG/1 ML SDV IV PRN ×2 (08:09→21:38)
[2019-10-01] MEDS ORDERED: POTASSIUM CHLORIDE 10 MEQ TABLET.ER PO ONE (08:30)
[2019-10-01] MEDS ORDERED: MAGNESIUM OXIDE 400 MG TABLET PO ONE (08:30)
[2019-10-01] MEDS ORDERED: (PENDING PHARMACY ID) (Lisinopril/Hydrochlorothiazide [Lisinopril-Hctz 20-12.5 Mg Tab] 1 E PO SCH (10:00)
[2019-10-01] MEDS: MELOXICAM 15 MG TABLET PO SCH (10:03)
[2019-10-01] MEDS: GABAPENTIN 300 MG CAPSULE PO SCH ×4 (10:03→21:37)
[2019-10-01] MEDS: HYDROCHLOROTHIAZIDE 12.5 MG TABLET PO SCH (10:10)
[2019-10-01] MEDS: FLUTICASONE NASAL SPRAY 50 MCG/SPRY 120 SPRAY/16 GM NASL SCH ×2 (10:16→21:38)
[2019-10-01] MEDS: FLUOXETINE HCL 20 MG CAPSULE PO SCH (10:17)
[2019-10-01] MEDS: GUAIFENESIN 600 MG TABLET.SA PO SCH ×2 (10:17→21:37)
[2019-10-01] MEDS: BUPROPION HCL 75 MG TABLET PO SCH ×2 (10:17→21:37)
[2019-10-01] MEDS: NICOTINE 7 MG/24 HR PATCH.TD24 TD SCH (10:18)
[2019-10-01] MEDS: CEFTRIAXONE 1 GM/D5W RTU 1 GM/50 ML RTUPB IV SCH (10:20)
[2019-10-01] MEDS: LISINOPRIL 10 MG TABLET PO SCH (10:21)
--- NOTE | 2019-10-01 11:19 | PDOC PROGRESS REPORT ---
Subjective Progress Note for:: 10/01/19 Subjective:: 59 year old male with a past medical history of chronic low back pain, COPD, chronic bronchitis and tobacco dependence. He presents with shortness of breath and a nonproductive cough as well as exacerbation of his chronic low back pain. In the emergency room he is found to have tachypnea, nonproductive cough, leukocytosis with bandemia and right-sided lung patchy infiltrate. He started on empiric antibiotics and referred to the hospitalist for admission. He denies recent antibiotics, he denies recent travel, exposure to known coronavirus. 09/30/19 59-year-old male with chronic lower back pain, COPD, chronic bronchitis, chronic smoker admitted with shortness of breath and nonproductive cough. He was found to be tachycardic tachypneic with elevated WBC count and chest x-ray indicated above right base pneumonia. He was admitted for antibiotic therapy. 10/01/[id number]-yryy-old male with chronic lower back pain, COPD, chronic bronchitis, chronic smoker admitted with shortness of breath and nonproductive cough. Found to have pneumonia and getting the IV antibiotic therapy. Blood cultures are positive for gram-positive cocci. Patient is complaining of increasing pain to start him on IV morphine 1 mg every 4 hours PRN. Serum potassium is 3.3 which is going to be supplemented magnesium is 1.6 which is going to be supplemented. Reason For Visit: COPD EXACERBATION,PNEUMONIA Physical Exam Vital Signs: Temp Pulse Resp BP Pulse Ox 98.2 F 109 H 14 160/92 H 96 10/01/19 08:00 10/01/19 08:08 10/01/19 08:08 10/01/19 08:00 10/01/19 08:08 Intake & Output 09/30/19 10/01/19 10/02/19 06:59 06:59 06:59 Intake Total 2527 1336 496 Output Total 0 100 Balance 2527 1236 496 Weight 90.6 kg 91.8 kg General appearance: PRESENT: no acute distress, obese Head exam: PRESENT: atraumatic Eye exam: PRESENT: PERRLA Mouth exam: PRESENT: moist, tongue midline Teeth exam: PRESENT: poor dentation Neck exam: ABSENT: carotid bruit, JVD, lymphadenopathy, thyromegaly Respiratory exam: PRESENT: decreased breath sounds Cardiovascular exam: PRESENT: RRR. ABSENT: diastolic murmur, rubs, systolic murmur GI/Abdominal exam: PRESENT: normal bowel sounds, soft. ABSENT: distended, guarding, mass, organolmegaly, rebound, tenderness Rectal exam: PRESENT: deferred Extremities exam: PRESENT: full ROM. ABSENT: calf tenderness, clubbing, pedal edema Neurological exam: PRESENT: alert, awake, oriented to person, oriented to place, oriented to time, oriented to situation, CN II-XII grossly intact. ABSENT: motor sensory deficit Psychiatric exam: PRESENT: appropriate affect, normal mood. ABSENT: homicidal ideation, suicidal ideation Results Laboratory Results: 10/01/19 03:41 10/01/19 03:41 10/01/19 10/01/19 03:41 03:41 WBC 16.3 H RBC 3.35 L Hgb 10.5 L Hct 30.1 L MCV 90 MCH 31.4 MCHC 35.0 RDW 16.2 H Plt Count 270 Seg Neutrophils % 75.5 Sodium 138.6 Potassium 3.3 L Chloride 104 Carbon Dioxide 26 Anion Gap 9 BUN 16 Creatinine 0.78 Est GFR ( Amer) > 60 Glucose 122 H Calcium 7.9 L Magnesium 1.6 Total Bilirubin 0.3 AST 25 Alkaline Phosphatase 56 Total Protein 5.4 L Albumin 2.8 L 09/29/19 06:05 Creatine Kinase 384 H Impressions: Chest X-Ray 09/29/19 17:35 IMPRESSION: Patchy airspace opacities in the right lung base, consistent with pneumonia in the correct clinical setting. Assessment and Plan - Diagnosis (1) Pneumonia Qualifiers: Pneumonia type: due to unspecified organism Laterality: right Lung location: lower lobe of lung Qualified Code(s): J18.9 - Pneumonia, unspecified organism Is this a current diagnosis for this admission?: Yes Plan: Complicated by COPD, chronic bronchitis and tobacco dependence. Pneumonia care set deployed, incentive spirometry and flutter valve, follow-up blood culture and CBC 09/30/2019-patient admitted with right-sided pneumonia most likely community- acquired pneumonia. Most likely gram-positive organisms responsible. Patient is presently on Zithromax and Rocephin. Plan is to continue the antibiotic therapy. Blood cultures are pending. 10/01/2019-patient admitted with right-sided pneumonia most likely need acquired pneumonia. Blood cultures are positive for gram-positive cocci. Plan is to continue IV Rocephin and Zithromax. WBC count today is 16,300. Afebrile. (2) Back pain Qualifiers: Back pain location: low back pain Chronicity: chronic Back pain laterality: unspecified Sciatica presence: unspecified whether sciatica present Qualified Code(s): M54.5 - Low back pain; G89.29 - Other chronic pain Is this a current diagnosis for this admission?: No Plan: Exacerbation likely secondary to #1, no focal vertebral tenderness 10/01/2019-patient is complaining of increasing back pains requesting IV pain medications started on IV morphine 1 mg every 4 hours PRN for pain. (3) Bandemia Is this a current diagnosis for this admission?: Yes Plan: Secondary to #1, empiric antibiotics initiated, follow-up CBC and blood culture 09/30/2019-patient came in with a WBC count of more than 25,000 improved to 21,000 today. leucocytosis most likely secondary to underlying pneumonia. 1120-WBC count is improved to 16,700 from 25,000. Improved being. (4) Diabetes 1.5, managed as type 2 Is this a current diagnosis for this admission?: No Plan: Follow-up outpatient medication reconciliation, avoid metformin, Humalog sliding scale ordered. 09/30/2019-patient has history of type 2 diabetes mellitus. Is on metformin at home , to hold metformin. To continue insulin sliding scale diet exercise weight loss lifestyle modifications discussed with the patient. Dietary consult will be requested. To check for hemoglobin A1c. 10/01/2019-patient has history of type 2 diabetes mellitus. Hemoglobin A1c's 6.0. To hold metformin and to continue insulin sliding scale before meals and at bedtime. (5) Weakness Is this a current diagnosis for this admission?: Yes (6) Sepsis Is this a current diagnosis for this admission?: Yes Plan: 10/01/2019 patient came in with increased WBC count, tachycardic, right-sided pneumonia. Blood cultures are positive for gram-positive cocci. Meeting the criteria for sepsis.
[2019-10-01] MEDS: AZITHROMYCIN 500 MG in DEXTROSE 5%-WATER 250 ML IV SCH (11:27)
[2019-10-01] MEDS: MORPHINE SULFATE 10 MG/ML INJ IV PRN ×2 (11:35→21:37)
[2019-10-01] MEDS: ALPRAZOLAM 0.25 MG TABLET PO PRN (21:37)
[2019-10-01] MEDS: TRAZODONE HCL 50 MG TABLET PO PRN (21:37)
[2019-10-02 05:28] LABS: ABSOLUTE EOSINOPHILS # (AUTO) 0.3 10^3/uL (0.0-0.6); ABSOLUTE MONOCYTES (AUTO) 1.1 10^3/uL (0.1-1.4); ABSOLUTE NEUT (AUTO) 8.3 10^3/uL (1.7-8.2); BASOPHILS % (AUTO) 0.3 % (0-2); HEMATOCRIT 31.4 % (37.9-51.0); HEMOGLOBIN 10.8 g/dL (13.5-17.0); LYMPHOCYTES % (AUTO) 23.8 % (13-45); MEAN CORPUSCULAR HEMOGLOBIN 30.6 pg (27.0-33.4); MEAN CORPUSCULAR HGB CONC 34.3 g/dL (32.0-36.0); MEAN CORPUSCULAR VOLUME 89 fl (80-97); MONOCYTES % (AUTO) 8.6 % (3-13); PLATELET COUNT 269 10^3/uL (150-450); RED BLOOD COUNT 3.53 10^6/uL (4.35-5.55); RED CELL DISTRIBUTION WIDTH 16.1 % (11.5-14.0); SEGMENTED NEUTROPHILS % (AUTO) 65.3 % (42-78); TOTAL CELLS COUNTED % (AUTO) 100 %; WHITE BLOOD COUNT 12.7 10^3/uL (4.0-10.5)
[2019-10-02 05:53] LABS: ANION GAP 8 (5-19); ASPARTATE AMINO TRANSFERASE 23 U/L (17-59); BILIRUBIN,TOTAL 0.4 mg/dL (0.2-1.3); BLOOD UREA NITROGEN 11 mg/dL (7-20); CALCIUM 8.3 mg/dL (8.4-10.2); CARBON DIOXIDE 27 mmol/L (22-30); CHLORIDE 102 mmol/L (98-107); GLUCOSE 105 mg/dL (75-110); NEONATAL BILIRUBIN RESULT 0.4 mg/dL (0.1-1.1); POTASSIUM 3.8 mmol/L (3.6-5.0); TOTAL PROTEIN 5.2 g/dL (6.3-8.2)
[2019-10-02 05:55] LABS: ALKALINE PHOSPHATASE 56 U/L (38-126)
[2019-10-02] MEDS: PANTOPRAZOLE SODIUM 20 MG TABLET.DR PO SCH (06:35)
[2019-10-02] MEDS: HEPARIN SOD (PORCINE) 5,000 UNIT/ML 1 ML VIAL SUBCUT SCH ×3 (06:38→21:16)
[2019-10-02] MEDS: KETOROLAC TROMETHAMINE INJ/PF 30 MG/1 ML SDV IV PRN ×2 (06:42→21:15)
[2019-10-02] MEDS: MORPHINE SULFATE 10 MG/ML INJ IV PRN ×2 (06:42→21:16)
[2019-10-02] MEDS: IPRATROPIUM/ALBUTEROL 0.5-2.5 MG/3 ML AMPUL NEB SCH ×2 (07:56→16:27)
[2019-10-02] MEDS: INSULIN LISPRO 100 UNIT/ML 3 ML VIAL SUBCUT SCH ×3 (08:36→16:24)
[2019-10-02] MEDS: FLUOXETINE HCL 20 MG CAPSULE PO SCH (09:48)
[2019-10-02] MEDS: GUAIFENESIN 600 MG TABLET.SA PO SCH ×2 (09:49→21:15)
[2019-10-02] MEDS: HYDROCHLOROTHIAZIDE 12.5 MG TABLET PO SCH (09:49)
[2019-10-02] MEDS: LISINOPRIL 10 MG TABLET PO SCH (09:49)
[2019-10-02] MEDS: NICOTINE 7 MG/24 HR PATCH.TD24 TD SCH (09:49)
[2019-10-02] MEDS: BUPROPION HCL 75 MG TABLET PO SCH ×2 (09:50→21:15)
[2019-10-02] MEDS: GABAPENTIN 300 MG CAPSULE PO SCH ×4 (09:50→21:15)
[2019-10-02] MEDS: MELOXICAM 15 MG TABLET PO SCH (09:50)
[2019-10-02] MEDS: CEFTRIAXONE 1 GM/D5W RTU 1 GM/50 ML RTUPB IV SCH (09:50)
[2019-10-02] MEDS: AZITHROMYCIN 250 MG TABLET PO SCH (09:50)
[2019-10-02] MEDS: FLUTICASONE NASAL SPRAY 50 MCG/SPRY 120 SPRAY/16 GM NASL SCH ×2 (09:51→21:16)
--- NOTE | 2019-10-02 11:14 | PDOC PROGRESS REPORT ---
Subjective Progress Note for:: 10/02/19 Subjective:: 59 year old male with a past medical history of chronic low back pain, COPD, chronic bronchitis and tobacco dependence. He presents with shortness of breath and a nonproductive cough as well as exacerbation of his chronic low back pain. In the emergency room he is found to have tachypnea, nonproductive cough, leukocytosis with bandemia and right-sided lung patchy infiltrate. He started on empiric antibiotics and referred to the hospitalist for admission. He denies recent antibiotics, he denies recent travel, exposure to known coronavirus. 09/30/19 59-year-old male with chronic lower back pain, COPD, chronic bronchitis, chronic smoker admitted with shortness of breath and nonproductive cough. He was found to be tachycardic tachypneic with elevated WBC count and chest x-ray indicated above right base pneumonia. He was admitted for antibiotic therapy. 10/01/[id number]-vozg-old male with chronic lower back pain, COPD, chronic bronchitis, chronic smoker admitted with shortness of breath and nonproductive cough. Found to have pneumonia and getting the IV antibiotic therapy. Blood cultures are positive for gram-positive cocci. Patient is complaining of increasing pain to start him on IV morphine 1 mg every 4 hours PRN. Serum potassium is 3.3 which is going to be supplemented magnesium is 1.6 which is going to be supplemented. 10/02/1947-44-lkkv-old male admitted for COPD exacerbation, patient is a chronic smoker itching indicates patient might have pneumonia and blood cultures came back positive for staph epidermidis. Indicating contamination. Patient is afebrile. Blood pressure stable. Reason For Visit: COPD EXACERBATION,PNEUMONIA Physical Exam Vital Signs: Temp Pulse Resp BP Pulse Ox 98.3 F 91 17 162/91 H 94 10/02/19 07:25 10/02/19 07:58 10/02/19 07:58 10/02/19 07:25 10/02/19 07:58 Intake & Output 10/01/19 10/02/19 10/03/19 06:59 06:59 06:59 Intake Total 1336 1128 50 Output Total 100 Balance 1236 1128 50 Weight 91.8 kg 87.4 kg General appearance: PRESENT: no acute distress Head exam: PRESENT: atraumatic Ear exam: PRESENT: normal external ear exam Mouth exam: PRESENT: moist Teeth exam: PRESENT: poor dentation Neck exam: ABSENT: carotid bruit, JVD, lymphadenopathy, thyromegaly Respiratory exam: PRESENT: decreased breath sounds Cardiovascular exam: PRESENT: RRR. ABSENT: diastolic murmur, rubs, systolic murmur Pulses: PRESENT: normal dorsalis pedis pul GI/Abdominal exam: PRESENT: normal bowel sounds, soft. ABSENT: distended, guard ing, mass, organolmegaly, rebound, tenderness Rectal exam: PRESENT: deferred Extremities exam: PRESENT: full ROM. ABSENT: calf tenderness, clubbing, pedal edema Neurological exam: PRESENT: alert, awake, oriented to person, oriented to place, oriented to time, oriented to situation, CN II-XII grossly intact. ABSENT: motor sensory deficit Psychiatric exam: PRESENT: appropriate affect, normal mood. ABSENT: homicidal ideation, suicidal ideation Results Laboratory Results: 10/02/19 03:52 10/02/19 03:52 10/02/19 10/02/19 03:52 03:52 WBC 12.7 H RBC 3.53 L Hgb 10.8 L Hct 31.4 L MCV 89 MCH 30.6 MCHC 34.3 RDW 16.1 H Plt Count 269 Seg Neutrophils % 65.3 Sodium 137.1 Potassium 3.8 Chloride 102 Carbon Dioxide 27 Anion Gap 8 BUN 11 Creatinine 0.81 Est GFR ( Amer) > 60 Glucose 105 Calcium 8.3 L Magnesium 1.9 Total Bilirubin 0.4 AST 23 Alkaline Phosphatase 56 Total Protein 5.2 L Albumin 3.0 L 09/29/19 17:47 Blood Blood Culture - Final Staphylococcus Epidermidis 09/29/19 06:05 Creatine Kinase 384 H Impressions: Chest X-Ray 09/29/19 17:35 IMPRESSION: Patchy airspace opacities in the right lung base, consistent with pneumonia in the correct clinical setting. Assessment and Plan - Diagnosis (1) Pneumonia Qualifiers: Pneumonia type: due to unspecified organism Laterality: right Lung location: lower lobe of lung Qualified Code(s): J18.9 - Pneumonia, unspecified organism Is this a current diagnosis for this admission?: Yes Plan: Complicated by COPD, chronic bronchitis and tobacco dependence. Pneumonia care set deployed, incentive spirometry and flutter valve, follow-up blood culture and CBC 09/30/2019-patient admitted with right-sided pneumonia most likely community- acquired pneumonia. Most likely gram-positive organisms responsible. Patient is presently on Zithromax and Rocephin. Plan is to continue the antibiotic therapy. Blood cultures are pending. 10/01/2019-patient admitted with right-sided pneumonia most likely community acquired pneumonia. Blood cultures are positive for gram-positive cocci. Plan is to continue IV Rocephin and Zithromax. WBC count today is 16,300. Afebrile. 10/02/2019-patient admitted with right-sided pneumonia most likely community- acquired pneumonia. Afebrile. Blood pressure stable. T-max is 98.7. Pulse ox is 92% room air. WBC count came down to 12,700. Blood cultures are positive for staph epidermidis possible contaminant. Plan is to continue the antibiotic therapy IV Rocephin and Zithromax patient may go home tomorrow with p.o. antibiotic therapy. (2) Back pain Qualifiers: Back pain location: low back pain Chronicity: chronic Back pain laterality: unspecified Sciatica presence: unspecified whether sciatica present Qualified Code(s): M54.5 - Low back pain; G89.29 - Other chronic pain Is this a current diagnosis for this admission?: No Plan: Exacerbation likely secondary to #1, no focal vertebral tenderness 10/01/2019-patient is complaining of increasing back pains requesting IV pain medications started on IV morphine 1 mg every 4 hours PRN for pain. 1220-patient came with complaints of back pain receiving IV morphine every 4 hours as needed. Pain is resolved. (3) Bandemia Is this a current diagnosis for this admission?: Yes Plan: Secondary to #1, empiric antibiotics initiated, follow-up CBC and blood culture 09/30/2019-patient came in with a WBC count of more than 25,000 improved to 21,000 today. leucocytosis most likely secondary to underlying pneumonia. 10/01/19-WBC count is improved to 16,700 from 25,000. Improved being. 09/24/2019-admission WBC count is 25,000 came down to 12,700 today. Leukocytosis secondary to pneumonia resolving. (4) Diabetes 1.5, managed as type 2 Is this a current diagnosis for this admission?: No Plan: Follow-up outpatient medication reconciliation, avoid metformin, Humalog sliding scale ordered. 09/30/2019-patient has history of type 2 diabetes mellitus. Is on metformin at home , to hold metformin. To continue insulin sliding scale diet exercise weight loss lifestyle modifications discussed with the patient. Dietary consult will be requested. To check for hemoglobin A1c. 10/01/2019-patient has history of type 2 diabetes mellitus. Hemoglobin A1c's 6.0. To hold metformin and to continue insulin sliding scale before meals and at bedtime. 10/02/2019-patient has history of type 2 diabetes mellitus, hemoglobin A1c 6. Blood sugar this morning is 129. Metformin is on hold. Plan is to continue insulin sliding scale before meals and at bedtime. (5) Weakness Is this a current diagnosis for this admission?: Yes (6) Sepsis Is this a current diagnosis for this admission?: Yes Plan: 10/01/2019 patient came in with increased WBC count, tachycardic, right-sided pneumonia. Blood cultures are positive for gram-positive cocci. Meeting the criteria for sepsis. . Fall 2019 sepsis is resolving. WBC count is 12,700, blood cultures came back positive for staph epidermidis which is a contaminant. Afebrile. Blood pres sures are stable. Plan is to continue IV antibiotic therapy today most likely patient will go home with p.o. antibiotics.
[2019-10-02] MEDS: TRAZODONE HCL 50 MG TABLET PO PRN (21:14)
[2019-10-02] MEDS: ALPRAZOLAM 0.25 MG TABLET PO PRN (21:15)
[2019-10-03] MEDS: IPRATROPIUM/ALBUTEROL 0.5-2.5 MG/3 ML AMPUL NEB SCH ×2 (00:23→07:55)
[2019-10-03] MEDS: HEPARIN SOD (PORCINE) 5,000 UNIT/ML 1 ML VIAL SUBCUT SCH (05:36)
[2019-10-03] MEDS: MORPHINE SULFATE 10 MG/ML INJ IV PRN ×2 (05:43→09:59)
[2019-10-03] MEDS: PANTOPRAZOLE SODIUM 20 MG TABLET.DR PO SCH (05:44)
[2019-10-03] MEDS: KETOROLAC TROMETHAMINE INJ/PF 30 MG/1 ML SDV IV PRN ×2 (05:44→12:07)
[2019-10-03] MEDS: INSULIN LISPRO 100 UNIT/ML 3 ML VIAL SUBCUT SCH ×2 (08:00→12:08)
[2019-10-03 09:30] LABS: ABSOLUTE BASOPHILS # (AUTO) 0.1 10^3/uL (0.0-0.2); ABSOLUTE EOSINOPHILS # (AUTO) 0.4 10^3/uL (0.0-0.6); ABSOLUTE LYMPHOCYTES (AUTO) 2.5 10^3/uL (0.5-4.7); ABSOLUTE MONOCYTES (AUTO) 0.9 10^3/uL (0.1-1.4); ABSOLUTE NEUT (AUTO) 6.9 10^3/uL (1.7-8.2); BASOPHILS % (AUTO) 0.5 % (0-2); EOSINOPHILS % (AUTO) 3.6 % (0-6); HEMATOCRIT 34.1 % (37.9-51.0); HEMOGLOBIN 11.7 g/dL (13.5-17.0); LYMPHOCYTES % (AUTO) 23.2 % (13-45); MEAN CORPUSCULAR HGB CONC 34.3 g/dL (32.0-36.0); MEAN CORPUSCULAR VOLUME 90 fl (80-97); MONOCYTES % (AUTO) 8.8 % (3-13); PLATELET COUNT 276 10^3/uL (150-450); RED BLOOD COUNT 3.77 10^6/uL (4.35-5.55); RED CELL DISTRIBUTION WIDTH 15.8 % (11.5-14.0); SEGMENTED NEUTROPHILS % (AUTO) 63.9 % (42-78); TOTAL CELLS COUNTED % (AUTO) 100 %; WHITE BLOOD COUNT 10.7 10^3/uL (4.0-10.5)
[2019-10-03 09:47] LABS: ALBUMIN 3.1 g/dL (3.5-5.0); ANION GAP 11 (5-19); BILIRUBIN,DIRECT 0.3 mg/dL (0.0-0.4); BILIRUBIN,TOTAL 0.4 mg/dL (0.2-1.3); CARBON DIOXIDE 26 mmol/L (22-30); CHLORIDE 98 mmol/L (98-107); NEONATAL BILIRUBIN RESULT 0.1 mg/dL (0.1-1.1); POTASSIUM 3.8 mmol/L (3.6-5.0)
[2019-10-03] MEDS: FLUTICASONE NASAL SPRAY 50 MCG/SPRY 120 SPRAY/16 GM NASL SCH (09:53)
[2019-10-03 09:58] LABS: ALKALINE PHOSPHATASE 53 U/L (38-126); ASPARTATE AMINO TRANSFERASE 20 U/L (17-59); BLOOD UREA NITROGEN 18 mg/dL (7-20); CALCIUM 8.2 mg/dL (8.4-10.2); GLUCOSE 245 mg/dL (75-110)
[2019-10-03] MEDS: GABAPENTIN 300 MG CAPSULE PO SCH (10:00)
[2019-10-03] MEDS: BUPROPION HCL 75 MG TABLET PO SCH (10:00)
[2019-10-03] MEDS: GUAIFENESIN 600 MG TABLET.SA PO SCH (10:00)
[2019-10-03] MEDS: MELOXICAM 15 MG TABLET PO SCH (10:01)
[2019-10-03] MEDS: AZITHROMYCIN 250 MG TABLET PO SCH (10:01)
[2019-10-03] MEDS: NICOTINE 7 MG/24 HR PATCH.TD24 TD SCH (10:02)
[2019-10-03] MEDS: FLUOXETINE HCL 20 MG CAPSULE PO SCH (10:02)
[2019-10-03] MEDS: LISINOPRIL 10 MG TABLET PO SCH (10:02)
[2019-10-03] MEDS: HYDROCHLOROTHIAZIDE 12.5 MG TABLET PO SCH (10:03)
[2019-10-03] MEDS: CEFTRIAXONE 1 GM/D5W RTU 1 GM/50 ML RTUPB IV SCH (10:04)
--- NOTE | 2019-10-03 11:33 | PDOC DISCHARGE SUMMARY ---
Impression - Admit/DC Date/PCP Admission Date/Primary Care Provider: 09/29/19 19:24 Discharge Date: 10/03/19 - Discharge Diagnosis (1) Pneumonia Is this a current diagnosis for this admission?: Yes (2) Back pain Is this a current diagnosis for this admission?: No (3) Bandemia Is this a current diagnosis for this admission?: Yes (4) Diabetes 1.5, managed as type 2 Is this a current diagnosis for this admission?: No (5) Weakness Is this a current diagnosis for this admission?: Yes (6) Sepsis Is this a current diagnosis for this admission?: Yes - Assessment Summary: (1) Pneumonia Qualifiers: Pneumonia type: due to unspecified organism Laterality: right Lung location: lower lobe of lung Qualified Code(s): J18.9 - Pneumonia, unspecified organism Is this a current diagnosis for this admission?: Yes Plan: Complicated by COPD, chronic bronchitis and tobacco dependence. Pneumonia care set deployed, incentive spirometry and flutter valve, follow-up blood culture and CBC 09/30/2019-patient admitted with right-sided pneumonia most likely community- acquired pneumonia. Most likely gram-positive organisms responsible. Patient is presently on Zithromax and Rocephin. Plan is to continue the antibiotic therapy. Blood cultures are pending. 10/01/2019-patient admitted with right-sided pneumonia most likely community acquired pneumonia. Blood cultures are positive for gram-positive cocci. Plan is to continue IV Rocephin and Zithromax. WBC count today is 16,300. Afebrile. 10/02/2019-patient admitted with right-sided pneumonia most likely community- acquired pneumonia. Afebrile. Blood pressure stable. T-max is 98.7. Pulse ox is 92% room air. WBC count came down to 12,700. Blood cultures are positive for staph epidermidis possible contaminant. Plan is to continue the antibiotic therapy IV Rocephin and Zithromax patient may go home tomorrow with p.o. antibiotic therapy. 10/03/2019-patient admitted with community-acquired pneumonia. Afebrile. Pulse ox are stable. WBC count normalized. Blood cultures came back contaminant. Patient is going home on p.o. levofloxacin 5 mg p.o. daily for 10 days. (2) Back pain Qualifiers: Back pain location: low back pain Chronicity: chronic Back pain laterality: unspecified Sciatica presence: unspecified whether sciatica present Qualified Code(s): M54.5 - Low back pain; G89.29 - Other chronic pain Is this a current diagnosis for this admission?: No Plan: Exacerbation likely secondary to #1, no focal vertebral tenderness 10/01/2019-patient is complaining of increasing back pains requesting IV pain medications started on IV morphine 1 mg every 4 hours PRN for pain. 10/02/19-patient came with complaints of back pain receiving IV morphine every 4 hours as needed. Pain is resolved. 10/03/2019-chronic back pain is resolved at this time. Patient is advised to follow-up with primary care physician for pain management. (3) Bandemia Is this a current diagnosis for this admission?: Yes Plan: Secondary to #1, empiric antibiotics initiated, follow-up CBC and blood culture 09/30/2019-patient came in with a WBC count of more than 25,000 improved to 21,000 today. leucocytosis most likely secondary to underlying pneumonia. 10/01/19-WBC count is improved to 16,700 from 25,000. Improved being. 10/02/2019-admission WBC count is 25,000 came down to 12,700 today. Leukocytosis secondary to pneumonia resolving. 10/03/2019-Will BC count today is 10,700 leukocytosis secondary to pneumonia resolved. (4) Diabetes 1.5, managed as type 2 Is this a current diagnosis for this admission?: No Plan: Follow-up outpatient medication reconciliation, avoid metformin, Humalog sliding scale ordered. 09/30/2019-patient has history of type 2 diabetes mellitus. Is on metformin at home , to hold metformin. To continue insulin sliding scale diet exercise weight loss lifestyle modifications discussed with the patient. Dietary consult will be requested. To check for hemoglobin A1c. 10/01/2019-patient has history of type 2 diabetes mellitus. Hemoglobin A1c's 6.0. To hold metformin and to continue insulin sliding scale before meals and at bedtime. 10/02/2019-patient has history of type 2 diabetes mellitus, hemoglobin A1c 6.0 Blood sugar this morning is 129. Metformin is on hold. Plan is to continue insulin sliding scale before meals and at bedtime. (5) Weakness Is this a current diagnosis for this admission?: Yes (6) Sepsis Is this a current diagnosis for this admission?: Yes Plan: 10/01/2019 patient came in with increased WBC count, tachycardic, right-sided pneumonia. Blood cultures are positive for gram-positive cocci. Meeting the criteria for sepsis. . Fall 2019 sepsis is resolving. WBC count is 12,700, blood cultures came back positive for staph epidermidis which is a contaminant. Afebrile. Blood pressures are stable. Plan is to continue IV antibiotic therapy today most likely patient will go home with p.o. antibiotics. 10/03/2019-sepsis is resolved , patient is going home on p.o. levofloxacin. - Additional Information Resuscitation Status: Full Code Discharge Diet: Diabetic Discharge Activity: Activity As Tolerated Referrals: VALERIY BRYANT DO [NO LOCAL MD] - Follow up as needed Prescriptions: Levofloxacin [Levaquin 500 mg Tablet] 500 mg PO DAILY #10 tablet Home Medications: Alprazolam 0.5 mg PO BIDP PRN MDD 2 MG 09/29/19 Bupropion HCl [Bupropion Xl] 150 mg PO DAILY 09/29/19 Fluoxetine HCl [Prozac 20 mg Capsule] 60 mg PO DAILY 09/29/19 Gabapentin [Neurontin 300 mg Capsule] 300 mg PO QID 09/29/19 Lisinopril/Hydrochlorothiazide [Lisinopril-Hctz 20-12.5 mg Tab] 1 each PO DAILY 09/29/19 Meloxicam [Mobic 15 mg Tablet] 15 mg PO DAILY 09/29/19 Metformin HCl [Glucophage 500 mg Tablet] 1,000 mg PO BIDACBS 09/29/19 Omeprazole 20 mg PO DAILY 09/29/19 Trazodone HCl [Desyrel 50 mg Tablet] 100 mg PO HSP PRN MDD 200 MG 09/29/19 Levofloxacin [Levaquin 500 mg Tablet] 500 mg PO DAILY #10 tablet 10/03/19 History of Present Illiness History of Present Illness: SEAMUS COBURN is a 59 year old male 59 year old male with a past medical history of chronic low back pain, COPD, chronic bronchitis and tobacco dependence. He presents with shortness of breath and a nonproductive cough as well as exacerbation of his chronic low back pain. In the emergency room he is found to have tachypnea, nonproductive cough, leukocytosis with bandemia and right-sided lung patchy infiltrate. He started on empiric antibiotics and referred to the hospitalist for admission. He denies recent antibiotics, he denies recent travel, exposure to known coronavirus. Hospital Course Hospital Course: 59 year old male with a past medical history of chronic low back pain, COPD, ch ronic bronchitis and tobacco dependence. He presents with shortness of breath and a nonproductive cough as well as exacerbation of his chronic low back pain. In the emergency room he is found to have tachypnea, nonproductive cough, leukocytosis with bandemia and right-sided lung patchy infiltrate. He started on empiric antibiotics and referred to the hospitalist for admission. He denies recent antibiotics, he denies recent travel, exposure to known coronavirus. 09/30/19 59-year-old male with chronic lower back pain, COPD, chronic bronchitis, chronic smoker admitted with shortness of breath and nonproductive cough. He was found to be tachycardic tachypneic with elevated WBC count and chest x-ray indicated above right base pneumonia. He was admitted for antibiotic therapy. 10/01/[id number]-lhej-old male with chronic lower back pain, COPD, chronic bronchitis, chronic smoker admitted with shortness of breath and nonproductive cough. Found to have pneumonia and getting the IV antibiotic therapy. Blood cultures are positive for gram-positive cocci. Patient is complaining of increasing pain to start him on IV morphine 1 mg every 4 hours PRN. Serum potassium is 3.3 which is going to be supplemented magnesium is 1.6 which is going to be supplemented. 10/02/[birth year]17-88-exwy-old male admitted for COPD exacerbation, patient is a chronic smoker itching indicates patient might have pneumonia and blood cultures came back positive for staph epidermidis. Indicating contamination. Patient is afebrile. Blood pressure stable. 10/03/[id number]-egbb-old male admitted with COPD exacerbation with possible underlying pneumonia. Blood cultures came back positive for staph epidermidis most likely contaminant. Afebrile. Blood pressure stable. Pulse oxes are stable. Patient can be safely discharged home with p.o. antibiotic therapy. Physical Exam Vital Signs: Temp Pulse Resp BP Pulse Ox 98.3 F 92 14 131/78 H 96 10/03/19 05:39 10/03/19 07:55 10/03/19 07:55 10/03/19 05:39 10/03/19 07:55 Intake & Output 10/02/19 10/03/19 10/04/19 06:59 06:59 06:59 Intake Total 1128 1210 Balance 1128 1210 Weight 87.4 kg 88.6 kg General appearance: PRESENT: no acute distress, well-developed Head exam: PRESENT: atraumatic Eye exam: PRESENT: PERRLA Mouth exam: PRESENT: moist, tongue midline Teeth exam: PRESENT: poor dentation Neck exam: ABSENT: carotid bruit, JVD, lymphadenopathy, thyromegaly Respiratory exam: PRESENT: decreased breath sounds Cardiovascular exam: PRESENT: RRR. ABSENT: diastolic murmur, rubs, systolic murmur GI/Abdominal exam: PRESENT: normal bowel sounds, soft. ABSENT: distended, guarding, mass, organolmegaly, rebound, tenderness Rectal exam: PRESENT: deferred Extremities exam: PRESENT: full ROM. ABSENT: calf tenderness, clubbing, pedal edema Neurological exam: PRESENT: alert, awake, oriented to person, oriented to place, oriented to time, oriented to situation, CN II-XII grossly intact. ABSENT: motor sensory deficit Psychiatric exam: PRESENT: appropriate affect, normal mood. ABSENT: homicidal ideation, suicidal ideation Results Laboratory Results: WBC 10.7 10^3/uL (4.0-10.5) H 10/03/19 08:46 RBC 3.77 10^6/uL (4.35-5.55) L 10/03/19 08:46 Hgb 11.7 g/dL (13.5-17.0) L 10/03/19 08:46 Hct 34.1 % (37.9-51.0) L 10/03/19 08:46 MCV 90 fl (80-97) 10/03/19 08:46 MCH 31.0 pg (27.0-33.4) 10/03/19 08:46 MCHC 34.3 g/dL (32.0-36.0) 10/03/19 08:46 RDW 15.8 % (11.5-14.0) H 10/03/19 08:46 Plt Count 276 10^3/uL (150-450) 10/03/19 08:46 Lymph % (Auto) 23.2 % (13-45) 10/03/19 08:46 [place] % (Auto) 8.8 % (3-13) 10/03/19 08:46 Eos % (Auto) 3.6 % (0-6) 10/03/19 08:46 Baso % (Auto) 0.5 % (0-2) 10/03/19 08:46 Absolute Neuts (auto) 6.9 10^3/uL (1.7-8.2) 10/03/19 08:46 Absolute Lymphs (auto) 2.5 10^3/uL (0.5-4.7) 10/03/19 08:46 Absolute Monos (auto) 0.9 10^3/uL (0.1-1.4) 10/03/19 08:46 Absolute Eos (auto) 0.4 10^3/uL (0.0-0.6) 10/03/19 08:46 Absolute Basos (auto) 0.1 10^3/uL (0.0-0.2) 10/03/19 08:46 Total Counted 100 09/30/19 03:51 Seg Neutrophils % 63.9 % (42-78) 10/03/19 08:46 Seg Neuts % (Manual) 88 % (42-78) H 09/30/19 03:51 Band Neutrophils % 1 % (3-5) L 09/30/19 03:51 Lymphocytes % (Manual) 6 % (13-45) L 09/30/19 03:51 Atypical Lymphs % 1 % (0) 09/29/19 06:05 Monocytes % (Manual) 5 % (3-13) 09/30/19 03:51 Eosinophils % (Manual) 0 % (0-6) 09/30/19 03:51 Basophils % (Manual) 0 % (0-2) 09/30/19 03:51 Abs Neuts (Manual) 19.3 10^3/uL (1.7-8.2) H 09/30/19 03:51 Abs Lymphs (Manual) 1.3 10^3/uL (0.5-4.7) 09/30/19 03:51 Abs Monocytes (Manual) 1.1 10^3/uL (0.1-1.4) 09/30/19 03:51 Absolute Eos (Manual) 0.0 10^3/uL (0.0-0.6) 09/30/19 03:51 Abs Basophils (Manual) 0.0 10^3/uL (0.0-0.2) 09/30/19 03:51 Toxic Granulation SLIGHT 09/30/19 03:51 Toxic Vacuolation PRESENT 09/29/19 06:05 Platelet Comment ADEQUATE 09/30/19 03:51 Anisocytosis SLIGHT 09/30/19 03:51 Sodium 134.7 mmol/L (137-145) L 10/03/19 08:46 Potassium 3.8 mmol/L (3.6-5.0) 10/03/19 08:46 Chloride 98 mmol/L (98-107) 10/03/19 08:46 Carbon Dioxide 26 mmol/L (22-30) 10/03/19 08:46 Anion Gap 11 (5-19) 10/03/19 08:46 BUN 18 mg/dL (7-20) 10/03/19 08:46 Creatinine 0.86 mg/dL (0.52-1.25) 10/03/19 08:46 Est GFR ( Amer) > 60 (>60) 10/03/19 08:46 Est GFR (MDRD) Non-Af > 60 (>60) 10/03/19 08:46 Glucose 245 mg/dL (75-110) H 10/03/19 08:46 POC Glucose 131 mg/dL (70-110) H 10/03/19 06:09 Hemoglobin A1c % 6.0 % (4.7-6.0) 10/01/19 03:41 Lactic Acid 2.8 mmol/L (0.7-2.1) H 09/29/19 18:20 Calcium 8.2 mg/dL (8.4-10.2) L 10/03/19 08:46 Magnesium 1.8 mg/dL (1.6-2.3) 10/03/19 08:46 Total Bilirubin 0.4 mg/dL (0.2-1.3) 10/03/19 08:46 Direct Bilirubin 0.3 mg/dL (0.0-0.4) 10/03/19 08:46 Neonat Total Bilirubin 0.1 mg/dL (0.1-1.1) 10/03/19 08:46 Neonat Direct Bilirubin 0.0 mg/dL (0.0-0.3) 10/03/19 08:46 Neonat Indirect Bili 0.1 mg/dL (0.0-1.1) 10/03/19 08:46 AST 20 U/L (17-59) 10/03/19 08:46 ALT 16 U/L (<50) 10/03/19 08:46 Alkaline Phosphatase 53 U/L (38-126) 10/03/19 08:46 Creatine Kinase 384 U/L (55-170) H 09/29/19 06:05 Total Protein 6.0 g/dL (6.3-8.2) L 10/03/19 08:46 Albumin 3.1 g/dL (3.5-5.0) L 10/03/19 08:46 Urine Color YELLOW 09/29/19 17:33 Urine Appearance CLEAR 09/29/19 17:33 Urine pH 5.0 (5.0-9.0) 09/29/19 17:33 Ur Specific [place] 1.021 09/29/19 17:33 Urine Protein NEGATIVE mg/dL (NEGATIVE) 09/29/19 17:33 Urine Glucose (UA) 50 mg/dL (NEGATIVE) H 09/29/19 17:33 Urine Ketones NEGATIVE mg/dL (NEGATIVE) 09/29/19 17:33 Urine Blood NEGATIVE (NEGATIVE) 09/29/19 17:33 Urine Nitrite (Reflex) NEGATIVE (NEGATIVE) 09/29/19 17:33 Urine Bilirubin NEGATIVE (NEGATIVE) 09/29/19 17:33 Urine Urobilinogen NEGATIVE mg/dL (<2.0) 09/29/19 17:33 Leukocyte Esterase Rfl NEGATIVE (NEGATIVE) 09/29/19 17:33 Urine RBC (Auto) 0 /HPF 09/29/19 17:33 Urine WBC (Reflex) 1 /HPF 09/29/19 17:33 Squamous Epi Cells Auto <1 /HPF 09/29/19 17:33 Urine Mucus (Auto) RARE /LPF 09/29/19 17:33 Urine Ascorbic Acid NEGATIVE (NEGATIVE) 09/29/19 17:33 Impressions: Chest X-Ray 09/29/19 17:35 IMPRESSION: Patchy airspace opacities in the right lung base, consistent with pneumonia in the correct clinical setting. Plan Plan of Treatment: Patient was given a prescription for levofloxacin 500 mg p.o. daily for 10 days. He was advised to follow-up with primary care physician in 1 week time. Patient agreed with the discharge plan and verbalized response. Time Spent: Greater than 30 Minutes Stroke Is this a Stroke Patient?: No Acute Heart Failure - Is this a Heart Failure Patient?: No
[2019-10-03 12:32] VITALS: BP 142/80
== END 2019-10-03 13:10 | disposition home or self-care (01) | DRG 871 ==
LOC: ER 15:44 → EH 19:24 → 4N 20:38
PROVIDERS: ADMIT Internal Medicine; ATTEND Internal Medicine
DX: A41.9 Sepsis, unspecified organism (principal); J18.9 Pneumonia, unspecified organism; M54.5 Low back pain; J44.9 Chronic obstructive pulmonary disease, unspecified; I10 Essential (primary) hypertension; K21.9 Gastro-esophageal reflux disease without esophagitis; F17.210 Nicotine dependence, cigarettes, uncomplicated; Z79.84 Long term (current) use of oral hypoglycemic drugs; Z79.899 Other long term (current) drug therapy
CPT/HCPCS: 36415; 71045; 80048; 80053; 81001; 82550; 82962; 83036; 83605; 83735; 85025; 87040; 87077; 87186; 94640; 94667; 94668; 94799; 96361; 96365; 96375; 99285; J0456; J0696; J1100; J1170; J1644; J1815; J1885; J2270; J3490; J7030; J7060; J7620

== ENCOUNTER 2020-04-19 10:25 | Emergency (ER) | payer MEDICARE ==
[2020-04-19] MEDS ORDERED: IPRATROPIUM/ALBUTEROL 0.5-2.5 MG/3 ML AMPUL NEB ONE (11:20)
[2020-04-19 11:41] LABS: ABSOLUTE BASOPHILS # (AUTO) 0.1 10^3/uL (0.0-0.2); ABSOLUTE EOSINOPHILS # (AUTO) 0.1 10^3/uL (0.0-0.6); ABSOLUTE LYMPHOCYTES (AUTO) 2.7 10^3/uL (0.5-4.7); ABSOLUTE MONOCYTES (AUTO) 1.4 10^3/uL (0.1-1.4); ABSOLUTE NEUT (AUTO) 10.5 10^3/uL (1.7-8.2); BASOPHILS % (AUTO) 0.4 % (0-2); EOSINOPHILS % (AUTO) 0.5 % (0-6); HEMOGLOBIN 12.9 g/dL (13.5-17.0); LYMPHOCYTES % (AUTO) 18.6 % (13-45); MEAN CORPUSCULAR HGB CONC 34.9 g/dL (32.0-36.0); MEAN CORPUSCULAR VOLUME 89 fl (80-97); MONOCYTES % (AUTO) 9.2 % (3-13); PLATELET COUNT 454 10^3/uL (150-450); RED BLOOD COUNT 4.17 10^6/uL (4.35-5.55); RED CELL DISTRIBUTION WIDTH 14.9 % (11.5-14.0); SEGMENTED NEUTROPHILS % (AUTO) 71.3 % (42-78); TOTAL CELLS COUNTED % (AUTO) 100 %; WHITE BLOOD COUNT 14.7 10^3/uL (4.0-10.5)
[2020-04-19 11:56] LABS: ALBUMIN 3.9 g/dL (3.5-5.0); ALKALINE PHOSPHATASE 77 U/L (38-126); ANION GAP 15 (5-19); ASPARTATE AMINO TRANSFERASE 20 U/L (17-59); BILIRUBIN,DIRECT 0.3 mg/dL (0.0-0.4); BILIRUBIN,TOTAL 0.9 mg/dL (0.2-1.3); BLOOD UREA NITROGEN 15 mg/dL (7-20); CALCIUM 8.7 mg/dL (8.4-10.2); CARBON DIOXIDE 18 mmol/L (22-30); CHLORIDE 94 mmol/L (98-107); CREATINE KINASE 143 U/L (55-170); GLUCOSE 133 mg/dL (75-110); POTASSIUM 3.3 mmol/L (3.6-5.0); TOTAL PROTEIN 6.5 g/dL (6.3-8.2)
--- NOTE | 2020-04-19 12:04 | ER Document Report ---
Entered by MAHESH DALE SCRIBE 04/19/20 1110 Acting as scribe for:CÉSAR MARMOLEJO MD ED Cardiac - General Stated Complaint: CHEST PAIN/DIFFICULTY BREATHING Time Seen by Provider: 04/19/20 11:07 Mode of Arrival: Medic Information source: Patient Notes: This 59 year old male patient sent in by his PCP (Adriel Olson) today for complaints of right sided chest pain, right arm pain, and shortness of breath. Patient reports that he has been short of breath for the last week when his air conditioning on his house went out. He reports over the last few days he has been "thinking slow, and was slow on his feet". He mentions some right sided chest pain that radiates to his right arm that was relieved by NTG given by EMS. TRAVEL OUTSIDE OF THE [place] IN LAST 30 DAYS: No - Related Data Allergies/Adverse Reactions: No Known Allergies Allergy (Verified 09/14/17 07:49) Past Medical History - General Information source: Patient - Social History Smoking Status: Current Every Day Smoker Cigarette use (# per day): Yes - 1 ppd Frequency of alcohol use: None Drug Abuse: None Lives with: Family Family History: Reviewed & Not Pertinent, Hypertension - Past Medical History Cardiac Medical History: Reports: Hx Hypertension Pulmonary Medical History: Reports: Hx Bronchitis - HX (child), Hx COPD Endocrine Medical History: Reports: Hx Diabetes Mellitus Type 2 GI Medical History: Reports: Hx Gastroesophageal Reflux Disease Psychiatric Medical History: Reports: Hx Depression, Hx Post Traumatic Stress Disorder Past Surgical History: Reports: Hx Orthopedic Surgery - r knee, r hand, disc surgery 03/2019 - Immunizations Hx Diphtheria, Pertussis, Tetanus Vaccination: Yes Review of Systems - Review of Systems Constitutional: No symptoms reported EENT: No symptoms reported Cardiovascular: See HPI, Chest pain Respiratory: See HPI, Short of breath Gastrointestinal: No symptoms reported Genitourinary: No symptoms reported Male Genitourinary: No symptoms reported Musculoskeletal: No symptoms reported Skin: No symptoms reported Hematologic/Lymphatic: No symptoms reported Neurological/Psychological: No symptoms reported -: Yes All other systems reviewed and negative Physical Exam - Vital signs Vitals: Temp 98.0 F 04/19/20 10:26 - Notes Notes: Physical Exam: General: Alert, appears well. HEENT: Normocephalic. Atraumatic. PERRL. Extraocular movements intact. Oropharynx clear. Neck: Supple. Non-tender. Respiratory: No respiratory distress. Wheezing and rhonchi bilaterally. Mild right anterior chest wall tenderness to palpation. Cardiovascular: Regular rate and rhythm. Abdominal: Normal Inspection. Non-tender. No distension. Normal Bowel Sounds. Back: No gross abnormalities. Extremities: Moves all four extremities. Upper extremities: Normal inspection. Normal ROM. Lower extremities: Normal inspection. No edema. Normal ROM. Neurological: Normal cognition. AAOx4. Normal speech. Psychological: Normal affect. Normal Mood. Skin: Warm. Dry. Normal color. Course - Re-evaluation Re-evalutation: 04/19/20 13:36 The patient was evaluated during the global COVID-19 pandemic and that diagnosis was suspected/considered upon their initial presentation. Their evaluation, treatment and testing was consistent with current guidelines for patients who present with complaints or symptoms that may be related to COVID-19. After albuterol and Atrovent neb treatment, the patient's breathing is better, he states he feels better, he still has some wheezes and rhonchi. He is currently receiving magnesium which should help his breathing and also his serum magnesium level of 1.1. He denies being an alcohol drinker. - Vital Signs Vital signs: Temp Pulse Resp BP Pulse Ox 98.0 F 22 H 108/69 100 04/19/20 10:26 04/19/20 12:01 04/19/20 12:01 04/19/20 12:01 - Laboratory Result Diagrams: 04/19/20 10:40 04/19/20 10:40 Laboratory results interpreted by me: 04/19/20 04/19/20 10:40 10:40 WBC 14.7 H RBC 4.17 L Hgb 12.9 L Hct 37.0 L RDW 14.9 H Plt Count 454 H Absolute Neuts (auto) 10.5 H Sodium 126.9 L Potassium 3.3 L Chloride 94 L Carbon Dioxide 18 L Glucose 133 H Magnesium 1.1 L* - Diagnostic Test Radiology reviewed: Image reviewed, Reports reviewed - Chest x-ray does not show acute process. - EKG Interpretation by Nh EKG shows normal: Sinus rhythm, [place], Intervals, QRS Complexes, ST-T Waves Rate: Tachycardia - 101 Discharge - Discharge Clinical Impression: COPD with exacerbation, Hypomagnesemia, Hypokalemia, Weakness, Chest wall pain Condition: Stable Disposition: HOME, SELF-CARE Instructions: COVID-19 Guidance for Persons Under Investigation Additional Instructions: Chest Wall Pain: Your chest pain has been diagnosed as coming from the chest wall. This is often caused by straining the muscles or joints in the chest during physical activity, direct trauma, coughing, or vigorous vomiting. Persons with arthritis are especially prone to this type of pain, due to inflammation of the cartilage joints near the breast bone. Occasionally, no cause can be found. Rest from strenuous physical activity. This kind of chest pain is usually ma de worse by movement of the chest. Depending on the symptoms, we may prescribe medicine for pain, muscle relaxation, and antiinflammatory effects. If the pain is new, and seems to be due to muscle strain, cold packs can help. Otherwise, apply gentle warmth to the painful area for 15 minutes every hour or two. You should contact the doctor immediately if things change. Further evaluation is needed if you develop a fever or cough, if the nature of the pain changes, or if you become short of breath. Bronchitis with Bronchospasm (Wheezing): You have bronchitis with bronchospasm (wheezing). Sometimes people develop wheezing with a chest cold. This occurs either because of an underlying tendency toward asthma or because the virus itself irritates the bronchial tubes. This irritation causes cough, shortness of breath, and wheezing. Emergency treatment of bronchospasm may include adrenaline shots or bronchodilator aerosol. You may feel lightheaded and have a rapid pulse for an hour or two. Rest and get plenty of fluids. At home, we'll treat you with a bronchodilator inhaler. Corticosteroids may be required for some patients. Until you recover, avoid chemical fumes, dusts, pollens, and exercising in very cold or dry air. If you smoke, stop now! Most cases of bronchitis get better without antibiotics. We prescribe antibiotics when we believe bacteria are damaging your airways, or if there's high risk the bronchitis will worsen into pneumonia. Increase your fluid intake. A cool mist humidifier may make your lungs more comfortable. An expectorant (cough medicine that loosens phlegm) can help. Repeated episodes of bronchitis and bronchospasm may result in lung damage -- for example, chronic bronchitis, recurrent pneumonias, or emphysema. If you develop a fever, increased wheezing, chest pain, or severe shortness of breath, you should contact the doctor immediately. Hypokalemia: You have an abnormally decreased level of serum potassium. Hypokalemia may cause weakness, fatigue, or heart rhythm abnormalities. Sometimes there are no symptoms at all. Usually, low serum potassium is due to taking diuretics (water pills). It can also be due to excessive vomiting or diarrhea. If no obvious cause is evident, further evaluation will be necessary. Treatment is usually to select foods which are naturally high in potassium -- fruits (such as bananas, cantaloupe, grapes, oranges, prunes, tomatoes), fresh vegetables (potatoes, spinach, beans, peas), orange or tomato juice, tomato pasta sauce, milk, fish (halibut, tuna, salmon, miley) A follow-up blood test is usually performed to assure that the potassium is returning to normal. Call the physician if you suffer severe weakness, muscle twitching or cramping, palpitations (pounding or irregular heartbeat), or any other new or alarming symptoms. Take medications as prescribed. Start the Mag-Ox 400 mg tablets tomorrow. Take in the middle of the day. Take the doxycycline in the morning and in the evening. Start the prednisone tomorrow. Use your nebulizer every 2-4 hours as needed for wheezing. Get plenty of rest. Follow-up with your primary care provider this week if not improving. Self isolate at home until you get the results of the COVID testing. RETURN TO THE EMERGENCY ROOM IF ANY NEW OR WORSENING SYMPTOMS. Prescriptions: Prednisone [Deltasone 10 mg Tablet] 10 mg PO ASDIR PRN #21 tablet PRN Reason: Doxycycline Hyclate 100 mg PO BID #20 tablet. Magnesium Oxide [Mag-Ox 400 mg Tablet] 400 mg PO ASDIR PRN #30 tablet PRN Reason: Albuterol Sulfate [Ventolin 0.083% Neb 2.5 mg/3 mL Ampul] 1 vial NEB Q4 PRN #50 vial PRN Reason: I personally performed the services described in the documentation, reviewed and edited the documentation which was dictated to the scribe in my presence, and it accurately records my words and actions.
[2020-04-19 12:08] LABS: CREATINE KINASE MB 1.93 ng/mL (<4.55)
[2020-04-19 12:09] LABS: TROPONIN I < 0.012 ng/mL
--- NOTE | 2020-04-19 12:15 | RADIOLOGY REPORT (SQ) ---
EXAM DESCRIPTION: CHEST SINGLE VIEW IMAGES COMPLETED DATE/TIME: 04/19/2020 12:03 pm REASON FOR STUDY: chest pain COMPARISON: 09/29/2019 EXAM PARAMETERS: NUMBER OF VIEWS: One view. TECHNIQUE: Single frontal radiographic view of the chest acquired. RADIATION DOSE: NA LIMITATIONS: None. FINDINGS: LUNGS AND PLEURA: No opacities, masses or pneumothorax. No pleural effusion. MEDIASTINUM AND HILAR STRUCTURES: No masses. Contour normal. HEART AND VASCULAR STRUCTURES: Heart normal in size. Normal vasculature. BONES: No acute findings. HARDWARE: None in the chest. OTHER: No other significant finding. IMPRESSION: NO ACUTE RADIOGRAPHIC FINDING IN THE CHEST. TECHNICAL DOCUMENTATION: JOB ID: [id number] 2010 [employer]- All Rights Reserved Reading location - IP/workstation name: [email or web address]
[2020-04-19] MEDS ORDERED: POTASSIUM CHLORIDE 20 MEQ PACKET PO ONE (12:52)
--- NOTE | 2020-04-19 13:15 | EKG REPORT ---
SEVERITY:- OTHERWISE NORMAL ECG - SINUS TACHYCARDIA : Confirmed by: Parneeth Wilcox MD 19-Apr-2020 13:15:07
[2020-04-19] MEDS: MAGNESIUM SULFATE/D5W 1 GM/100 ML RTUPB IV SCH ×2 (13:27→14:43)
[2020-04-19] MEDS ORDERED: ALBUTEROL SULFATE 0.083% NEB 2.5 MG/3 ML AMPUL NEB ONE (13:36)
[2020-04-19 13:45] LABS: APPEARANCE,URINE CLEAR; BILIRUBIN,URINE NEGATIVE (NEGATIVE); COLOR,URINE YELLOW; GLUCOSE, URINE NEGATIVE (NEGATIVE); KETONES,URINE NEGATIVE (NEGATIVE); LEUKOCYTE ESTERASE,URINE NEGATIVE (NEGATIVE); NITRITE,URINE NEGATIVE (NEGATIVE); PROTEIN,URINE NEGATIVE (NEGATIVE); URINE SPECIFIC GRAVITY 1.019; UROBILINOGEN,URINE NEGATIVE mg/dL (<2.0)
[2020-04-19] MEDS ORDERED: PREDNISONE 20 MG TABLET PO ONE (14:47)
[2020-04-19] MEDS ORDERED: BENZONATATE 100 MG CAPSULE PO ONE (14:48)
[2020-04-19 16:21] VITALS: BP 119/80
== END 2020-04-19 16:31 | disposition home or self-care (01) ==
LOC: ER 10:25
DX: J44.1 Chronic obstructive pulmonary disease with (acute) exacerbation (principal); E83.42 Hypomagnesemia; E87.6 Hypokalemia; R07.89 Other chest pain; R53.1 Weakness; M79.601 Pain in right arm; R06.02 Shortness of breath; R00.0 Tachycardia, unspecified; F17.210 Nicotine dependence, cigarettes, uncomplicated; I10 Essential (primary) hypertension; E11.9 Type 2 diabetes mellitus without complications; Z20.828 Contact with and (suspected) exposure to other viral communicable diseases
CPT/HCPCS: 93005; 94640 ×2; 99285; 96365; 96366; 36415; 82553; 82550; 83735; 85025; 80053; 81001; 84484; 71045; 93010; U0003; A9270 ×3; J3475; J3490; C9803; 87635; J7512; J7613

== ENCOUNTER 2020-05-05 11:04 | Emergency (ER) | payer MEDICARE ==
--- NOTE | 2020-05-05 13:19 | ER Document Report ---
ED Medical Screen (RME) - General Chief Complaint: Fall Stated Complaint: DIZZINESS Time Seen by Provider: 05/05/20 13:12 TRAVEL OUTSIDE OF THE [place] IN LAST 30 DAYS: No - HPI Notes: 05/05/20 13:18 5-year-old male to the emergency department via EMS with complaints of 1 year of progressively worsening weakness and dizziness with frequent falls. He states he came into the emergency department today because it is getting worse. He states every time he tries to stand up to walk to the bathroom he feels like he is going to pass out. He states he gets very very shaky and lightheaded and feels unsteady. He states that he also has chest pain that gets worse with exertion. States it runs from the right side of the chest over to the left. Denies any shortness of breath. He denies any arline syncopal episodes. He lives by himself. He states he seen at [facility]. He states he went to [facility] 2 weeks ago and told him what was going on and he was sent to the emergency department. He states that he was then sent home after his "oxygen levels got better". He is a smoker. I performed a brief medical screening exam on the patient determined that the patient needs further evaluation and management by main side provider. I have placed initial orders to help expedite care. - Related Data Allergies/Adverse Reactions: No Known Allergies Allergy (Verified 05/05/20 13:02) Home Medications: Bupropion XL 300mg. Gabapentin 300mg. metformin 1000mg. trazodone 100mg. omeprazole 20mg. alprazolam 1mg. hydrocodone/acetaminophen 5-325mg. Fluoxetine 20mg. meloxicam 15mg. lisinopril/hctz 20-12.5mg. albuterol inhaler Past Medical History - Past Medical History Cardiac Medical History: Reports: Hx Hypertension Denies: Hx Coronary Artery Disease, Hx Heart Attack Pulmonary Medical History: Reports: Hx Bronchitis - HX (child), Hx COPD Denies: Hx Asthma, Hx Pneumonia Neurological Medical History: Denies: Hx Cerebrovascular Accident, Hx Seizures Endocrine Medical History: Reports: Hx Diabetes Mellitus Type 2 Renal/ Medical History: Denies: Hx Peritoneal Dialysis GI Medical History: Reports: Hx Gastroesophageal Reflux Disease. Denies: Hx Hepatitis, Hx Hiatal Hernia, Hx Ulcer Musculoskeltal Medical History: Denies Hx Arthritis Psychiatric Medical History: Reports: Hx Depression, Hx Post Traumatic Stress Disorder Infectious Medical History: Denies: Hx Hepatitis Past Surgical History: Reports: Hx Orthopedic Surgery - r knee, r hand, disc surgery 03/2019,back, neck. Denies: Hx Open Heart Surgery, Hx Pacemaker - Immunizations Hx Diphtheria, Pertussis, Tetanus Vaccination: Yes Physical Exam - Vital signs Vitals: Temp Pulse Resp BP Pulse Ox 97.8 F 98 20 132/85 H 98 05/05/20 11:39 05/05/20 11:39 05/05/20 11:39 05/05/20 11:39 05/05/20 11:39 Course - Vital Signs Vital signs: Temp Pulse Resp BP Pulse Ox 97.8 F 98 20 132/85 H 98 05/05/20 11:39 05/05/20 11:39 05/05/20 11:39 05/05/20 11:39 05/05/20 11:39
--- NOTE | 2020-05-05 14:00 | RADIOLOGY REPORT (SQ) ---
EXAM DESCRIPTION: CHEST SINGLE VIEW IMAGES COMPLETED DATE/TIME: 05/05/2020 1:49 pm REASON FOR STUDY: weakness, dizziness COMPARISON: 04/19/2020 EXAM PARAMETERS: NUMBER OF VIEWS: One view. TECHNIQUE: Single frontal radiographic view of the chest acquired. RADIATION DOSE: NA LIMITATIONS: None. FINDINGS: LUNGS AND PLEURA: Hyperexpansion. No consolidation or effusions. No pneumothorax. MEDIASTINUM AND HILAR STRUCTURES: No masses. Contour normal. HEART AND VASCULAR STRUCTURES: Heart normal in size. Normal vasculature. BONES: No acute findings. HARDWARE: None in the chest. OTHER: No other significant finding. IMPRESSION: Hyperexpansion otherwise negative chest. TECHNICAL DOCUMENTATION: JOB ID: [id number] 2010 [employer]- All Rights Reserved Reading location - IP/workstation name: [email or web address]
[2020-05-05 14:01] LABS: ABSOLUTE EOSINOPHILS # (AUTO) 0.2 10^3/uL (0.0-0.6); ABSOLUTE LYMPHOCYTES (AUTO) 3.6 10^3/uL (0.5-4.7); ABSOLUTE MONOCYTES (AUTO) 0.8 10^3/uL (0.1-1.4); ABSOLUTE NEUT (AUTO) 8.9 10^3/uL (1.7-8.2); BASOPHILS % (AUTO) 0.3 % (0-2); EOSINOPHILS % (AUTO) 1.7 % (0-6); HEMATOCRIT 33.8 % (37.9-51.0); HEMOGLOBIN 11.7 g/dL (13.5-17.0); LYMPHOCYTES % (AUTO) 26.2 % (13-45); MEAN CORPUSCULAR HEMOGLOBIN 31.5 pg (27.0-33.4); MEAN CORPUSCULAR HGB CONC 34.6 g/dL (32.0-36.0); MEAN CORPUSCULAR VOLUME 91 fl (80-97); PLATELET COUNT 394 10^3/uL (150-450); RED BLOOD COUNT 3.72 10^6/uL (4.35-5.55); RED CELL DISTRIBUTION WIDTH 14.6 % (11.5-14.0); SEGMENTED NEUTROPHILS % (AUTO) 65.8 % (42-78); TOTAL CELLS COUNTED % (AUTO) 100 %; WHITE BLOOD COUNT 13.6 10^3/uL (4.0-10.5)
[2020-05-05 14:12] LABS: INTERNATIONAL RATION (INR) 0.92; PROTHROMBIN TIME 12.6 SEC (11.4-15.4)
[2020-05-05 14:13] LABS: PARTIAL THROMBOPLASTIN TIME 25.1 SEC (23.5-35.8)
--- NOTE | 2020-05-05 14:20 | RADIOLOGY REPORT (SQ) ---
EXAM DESCRIPTION: CT HEAD WITHOUT IMAGES COMPLETED DATE/TIME: 05/05/2020 2:06 pm REASON FOR STUDY: weakness COMPARISON: 09/14/2017 TECHNIQUE: Axial images acquired through the brain without intravenous contrast. Images reviewed wi th bone, brain and subdural windows. Additional sagittal and coronal reconstructions were generated. Images stored on PACS. All CT scanners at this facility use dose modulation, iterative reconstruction, and/or weight based d osing when appropriate to reduce radiation dose to as low as reasonably achievable (ALARA). [facility]: Dose Right [facility]: CareDose [facility]: Dose Right [facility]: Teradose 4D [facility]: RedKLEVER RADIATION DOSE: CT Rad equipment meets quality standard of care and radiation dose reduction techniq ues were employed. CTDIvol: 53.2 mGy. DLP: 991 mGy-cm. mGy. LIMITATIONS: None. FINDINGS: VENTRICLES: Normal size and contour. CEREBRUM: No masses. No hemorrhage. No midline shift. No evidence for acute infarction. Normal gra y/white matter differentiation. No areas of low density in the white matter. CEREBELLUM: No masses. No hemorrhage. No alteration of density. No evidence for acute infarction. EXTRAAXIAL SPACES: No fluid collections. No masses. ORBITS AND GLOBE: No intra- or extraconal masses. Normal contour of globe without masses. CALVARIUM: No fracture. PARANASAL SINUSES: No fluid or mucosal thickening. SOFT TISSUES: No mass or hematoma. OTHER: No other significant finding. IMPRESSION: NORMAL BRAIN CT WITHOUT CONTRAST. EVIDENCE OF ACUTE STROKE: NO. COMMENT: Quality ID # [id number]: Final reports with documentation of one or more dose reduction techniques (e.g., Automated exposure control, adjustment of the mA and/or kV according to patient size, use of iterative reconstruction technique) TECHNICAL DOCUMENTATION: JOB ID: [id number] 2010 [employer]- All Rights Reserved Reading location - IP/workstation name: [email or web address]
[2020-05-05 14:21] LABS: ALBUMIN 3.6 g/dL (3.5-5.0); ALKALINE PHOSPHATASE 66 U/L (38-126); ANION GAP 12 (5-19); ASPARTATE AMINO TRANSFERASE 23 U/L (17-59); BILIRUBIN,TOTAL 0.3 mg/dL (0.2-1.3); BLOOD UREA NITROGEN 19 mg/dL (7-20); CALCIUM 9.1 mg/dL (8.4-10.2); CARBON DIOXIDE 22 mmol/L (22-30); CHLORIDE 103 mmol/L (98-107); CREATINE KINASE 57 U/L (55-170); GLUCOSE 89 mg/dL (75-110)
[2020-05-05] MEDS ORDERED: NORMAL SALINE 1000 ML 1,000 ML IV ONE (17:10)
--- NOTE | 2020-05-05 17:22 | ER Document Report ---
ED General - General Chief Complaint: Fall Stated Complaint: DIZZINESS Time Seen by Provider: 05/05/20 13:12 TRAVEL OUTSIDE OF THE [place] IN LAST 30 DAYS: No - HPI Notes: Chief complaint: Weakness and recurrent falls. HPI: SEAMUS COBURN is a 59 year old male followed by [facility] with a past medical history of chronic low back pain, COPD, chronic bronchitis and tobacco dependence. He has had prior neck and back surgery and has chronic chronic low back pain. Patient lives by himself and says that he now has considerable difficulty walking from his couch to his bathroom getting extremely short of breath with this activity and experiencing generalized musculoskeletal pain. He says he has had multiple falls and has had momentary syncopal episodes on and off for over a year. He denies any known cardiac history. He denies any known history of thromboembolic disease. He feels he is no longer able to care for himself. He is requesting assistance in getting into an assisted living facility of some kind. He says he has essentially stopped smoking within the last week. He still uses nebulizer treatments at home. He denies fever chills. He denies hemoptysis. He notes that he experiences generalized tremors and knees are worse when he attempts to walk. He denies any known history of stroke. Patient reports he is eating and drinking normally. Patient says his family history is negative for neurological disorders or CAD. No known family history of thromboembolic disease. Current medications: Alprazolam 0.5 mg PO BIDP PRN MDD 2 MG 09/29/19 Bupropion HCl [Bupropion Xl] 150 mg PO DAILY 09/29/19 Fluoxetine HCl [Prozac 20 mg Capsule] 60 mg PO DAILY 09/29/19 Gabapentin [Neurontin 300 mg Capsule] 300 mg PO QID 09/29/19 Lisinopril/Hydrochlorothiazide [Lisinopril-Hctz 20-12.5 mg Tab] 1 each PO DAILY 09/29/19 Meloxicam [Mobic 15 mg Tablet] 15 mg PO DAILY 09/29/19 Metformin HCl [Glucophage 500 mg Tablet] 1,000 mg PO BIDACBS 09/29/19 Omeprazole 20 mg PO DAILY 09/29/19 Trazodone HCl [Desyrel 50 mg Tablet] 100 mg PO HSP PRN MDD 200 MG 09/29/19 - Related Data Allergies/Adverse Reactions: No Known Allergies Allergy (Verified 05/05/20 13:02) Home Medications: Bupropion XL 300mg. Gabapentin 300mg. metformin 1000mg. trazodone 100mg. omeprazole 20mg. alprazolam 1mg. hydrocodone/acetaminophen 5-325mg. Fluoxetine 20mg. meloxicam 15mg. lisinopril/hctz 20-12.5mg. albuterol inhaler Past Medical History - General Information source: Patient - Social History Smoking Status: Current Every Day Smoker Frequency of alcohol use: None Drug Abuse: None Family History: Reviewed & Not Pertinent, Hypertension - Past Medical History Cardiac Medical History: Reports: Hx Hypertension Denies: Hx Coronary Artery Disease, Hx Heart Attack Pulmonary Medical History: Reports: Hx Bronchitis - HX (child), Hx COPD Denies: Hx Asthma, Hx Pneumonia Neurological Medical History: Denies: Hx Cerebrovascular Accident, Hx Seizures Endocrine Medical History: Reports: Hx Diabetes Mellitus Type 2 Renal/ Medical History: Denies: Hx Peritoneal Dialysis GI Medical History: Reports: Hx Gastroesophageal Reflux Disease. Denies: Hx Hepatitis, Hx Hiatal Hernia, Hx Ulcer Musculoskeletal Medical History: Denies Hx Arthritis Psychiatric Medical History: Reports: Hx Depression, Hx Post Traumatic Stress Disorder Infectious Medical History: Denies: Hx Hepatitis Past Surgical History: Reports: Hx Orthopedic Surgery - r knee, r hand, disc surgery 03/2019,back, neck. Denies: Hx Open Heart Surgery, Hx Pacemaker - Immunizations Hx Diphtheria, Pertussis, Tetanus Vaccination: Yes Review of Systems - Review of Systems Notes: Constitutional: Negative for fever. HENT: Negative for sore throat. Eyes: Negative for visual changes. Cardiovascular: Patient reports intermittent right-sided chest discomfort aggravated by movement. Respiratory: As per HPI. No sputum production or hemoptysis. He does not use any home oxygen. Gastrointestinal: Negative for abdominal pain, vomiting or diarrhea. No melena or hematochezia. No hematemesis. Genitourinary: Negative for dysuria. 2X nocturia. Musculoskeletal: Chronic neck and back pain. Skin: Negative for rash. Neurological: Negative for headaches, focal weakness or numbness. 10 point ROS negative except as marked above and in HPI. Physical Exam - Vital signs Vitals: Temp Pulse Resp BP Pulse Ox 97.8 F 98 20 132/85 H 98 05/05/20 11:39 05/05/20 11:39 05/05/20 11:39 05/05/20 11:39 05/05/20 11:39 - Notes Notes: GENERAL: Frail elderly male patient. SKIN: Good turgor no rashes. Nicotine staining of fingers. HEAD: Normocephalic atraumatic. Old healed scar right forehead area attributed to a fall within the last year. EYES: PERRLA. EOMI. Conjunctivae and sclerae clear. EARS: CANALS AND TMS CLEAR. NOSE: CLEAR. MOUTH: Moist mucosa. Edentulous with dentures. No stridor or edema. No drooling. NECK: Supple. No masses or thyromegaly. No adenopathy. Carotids 2+ without bruits. No JVD. BACK: Symmetrical with mild generalized. CHEST: Chest wall tenderness right side. No visible ecchymoses, step-off or crepitus. Respirations unlabored. Breath sounds clear and symmetrical. HEART: Regular rhythm. No murmur gallop or rub. ABDOMEN: Soft nontender without masses, organomegaly or rebound. Bowel sounds n ormally active. No bruits. GENITALIA: Deferred. EXTREMITIES: Moderate degenerative changes intra-phalangeal joints of both hands. No edema. No calf tenderness. Cap refill less than 1.5 seconds. Dorsalis pedis and posterior tibial pulses 3+ and symmetrical. NEUROLOGICAL: MILD GENERALIZED RESTING TREMOR GCS 15. Alert and oriented x3. Unsteady gait gait. Fluent speech. Cranial nerves II through XII intact. Sensorimotor testing grossly normal. Normal finger nose test bilaterally. Norm al tone. PSYCHIATRIC: Slightly flat affect. Course - Re-evaluation Re-evalutation: 05/05/20 21:09 Mr. Moore appears to primarily have deconditioning from his of heavy cigarette smoking and COPD. His work-up in the ED is not revealed any specific issue that would warrant acute care hospitalization. He lives alone and has no relatives and clearly needs go to an assisted care living situation. I have requested discharge planning nurse to assist placement for this patient and we will maintain him here on social hold at this time. - Vital Signs Vital signs: Temp Pulse Resp BP Pulse Ox 97.3 F 94 19 112/71 97 05/05/20 15:40 05/05/20 20:43 05/05/20 20:01 05/05/20 20:43 05/05/20 20:01 - Laboratory Result Diagrams: 05/05/20 13:35 05/05/20 13:35 Laboratory results interpreted by me: 05/05/20 05/05/20 13:35 13:35 WBC 13.6 H RBC 3.72 L Hgb 11.7 L Hct 33.8 L RDW 14.6 H Absolute Neuts (auto) 8.9 H Sodium 136.9 L Total Protein 6.0 L - Diagnostic Test Radiology reviewed: Reports reviewed - Chest x-ray per radiologist: Hyperinflation. Noncontrast head CT per radiologist: Normal. - EKG Interpretation by Me Additional EKG results interpreted by me: 05/05/20 17:30 EKG #1 Twelve-lead EKG reviewed by me contemporaneously: 1335 hrs. Indication for study: Chest pain pain Rhythm: Normal sinus Rate: 88 Intervals: Normal QRS axis: +[address]/T wave changes: None Comparison with prior tracing: Unchanged from prior EKG 04/19/2020 Interpretation: Normal tracing EKG #2 Twelve-lead EKG reviewed by me contemporaneously: 1551 hrs. Indication for study: Chest pain pain Rhythm: Normal sinus Rate: 88 Intervals: Normal QRS axis: +[address]/T wave changes: None Comparison with prior tracing: Unchanged from prior EKG this Interpretation: Normal tracing Discharge - Discharge Clinical Impression: Moderate deconditioning, Chronic obstructive pulmonary disease, Chronic pain syndrome Condition: Stable Disposition: HOME, SELF-CARE
--- NOTE | 2020-05-05 19:37 | RADIOLOGY REPORT (SQ) ---
EXAM DESCRIPTION: CTA CHEST IMAGES COMPLETED DATE/TIME: 05/05/2020 6:09 pm REASON FOR STUDY: dyspnea COMPARISON: Chest radiograph same date. TECHNIQUE: CT scan of the chest performed using helical scanning technique with dynamic intravenous contrast injection. Images reviewed with lung, soft tissue and bone windows. Reconstructed coronal and sagittal MPR images reviewed. Additional 3 dimensional post-processing performed to develop Maximal Intensity Projection images (UT P). All images stored on PACS. All CT scanners at this facility use dose modulation, iterative reconstruction, and/or weight based d osing when appropriate to reduce radiation dose to as low as reasonably achievable (ALARA). [facility]: Dose Right [facility]: CareDose [facility]: Dose Right [facility]: Teradose 4D [facility]: Smart [place] CONTRAST TYPE AND DOSE: contrast/concentration: Isovue mmol/ml; Total Contrast Delivered: 62.0 ml; Total Saline Delivered: 71.0 ml Contrast bolus optimized for the pulmonary arteries. Not diagnostic for the aorta. RENAL FUNCTION: GFR > 60. RADIATION DOSE: . LIMITATIONS: None. FINDINGS: LUNGS AND PLEURA: Trachea has normal caliber and appearance. No bronchial wall thickening or bronchiectasis. No focal consolidation. Background mild pulmonary emphysema. Subpleural atelec tasis posterior right upper lobe. No suspicious pulmonary nodules. No pleural effusion or pneumotho rax. AORTA AND GREAT VESSELS: No thoracic aortic aneurysm. Great vessels have normal caliber and appearan ce. Scattered calcified and noncalcified atherosclerotic plaque. No dissection or plaque ulceration . HEART: No pericardial effusion. No significant coronary artery calcifications. PULMONARY ARTERIES: No emboli visualized in the main pulmonary arteries or the segmental branches. HILAR AND MEDIASTINAL STRUCTURES: No identified masses or abnormal nodes. HARDWARE: None in the chest. UPPER ABDOMEN: Partial visualization of an infrarenal abdominal aortic aneurysm measuring up to 3.2 c m on the visualized images. There is calcified and noncalcified atherosclerotic plaque. Probable hi gh-grade stenosis at the left renal artery. Circumscribed hypodense 1 cm lesion in the right hepatic lobe probably a small cyst. THYROID AND OTHER SOFT TISSUES: No masses. No adenopathy. BONES: Chronic nonunited left posterior rib fractures. No acute fracture. Anterior cervical fixatio n partially visualized. No suspicious bone lesions. 3D MIPS: Confirm above findings. OTHER: No other significant finding. IMPRESSION: 1. No pulmonary embolism. No acute pulmonary disease. 2. Partial visualization of an infrarenal abdominal aortic aneurysm measuring 3.2 cm. Correlation wi th any previous outside imaging recommended to evaluate for stability. COMMENT: Quality ID # [id number]: Final reports with documentation of one or more dose reduction techniques (e.g., Automated exposure control, adjustment of the mA and/or kV according to patient size, use of iterative reconstruction technique) TECHNICAL DOCUMENTATION: JOB ID: [id number] 2010 [facility]- All Rights Reserved Reading location - IP/workstation name: [email or web address]
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
--- NOTE | 2020-05-05 22:09 | EKG REPORT ---
SEVERITY:- NORMAL ECG - SINUS RHYTHM : Confirmed by: Lawrence Deleon 05-May-2020 22:08:37
--- NOTE | 2020-05-05 22:09 | EKG REPORT ---
SEVERITY:- NORMAL ECG - SINUS RHYTHM : Confirmed by: Lawrence Deleon 05-May-2020 22:08:32
[2020-05-06] MEDS ORDERED: ALPRAZOLAM 0.5 MG TABLET PO PRN (15:46)
[2020-05-06] MEDS: METFORMIN HCL 500 MG TABLET PO SCH (16:52)
[2020-05-06] MEDS: GABAPENTIN 300 MG CAPSULE PO SCH (17:59)
[2020-05-06] MEDS ORDERED: HYDROCODONE/ACETAMINOPHEN 5-325 MG TABLET PO ONE (18:48)
--- NOTE | 2020-05-06 19:35 | ER Document Report ---
Doctor's Note Notes: 05/06/20 19:34 Patient continues to wait on a disposition. The correctional case records supervisor/social services director is hopeful she will have a disposition possibly tomorrow. Patient is now complaining about his neck pain request his Tipton. He takes Tipton once daily according to the med rec. He will be given 1 dose of the Tipton now. The medication reconciliation was done late this afternoon by the pharmacy, I reviewed it and continue the medications that I thought were appropriate for the time being while the patient is here in the emergency room. The daily Tipton was left off and can be on a as needed basis with input from the physician.
[2020-05-06] MEDS ORDERED: TRAZODONE HCL 50 MG TABLET PO SCH (22:00)
[2020-05-06] MEDS: BUPROPION HCL 75 MG TABLET PO SCH (22:28)
[2020-05-07] MEDS: GABAPENTIN 300 MG CAPSULE PO SCH ×3 (00:06→12:53)
[2020-05-07] MEDS: METFORMIN HCL 500 MG TABLET PO SCH (09:04)
[2020-05-07] MEDS ORDERED: (PENDING PHARMACY ID) (Bupropion Hcl [Bupropion Xl] 300 MG) PO SCH (10:00)
[2020-05-07] MEDS ORDERED: HYDROCHLOROTHIAZIDE 25 MG TABLET PO SCH (10:00)
[2020-05-07] MEDS ORDERED: (PENDING PHARMACY ID) (Lisinopril/Hydrochlorothiazide [Lisinopril-Hctz 20-12.5 Mg Tab] 2 T PO SCH (10:00)
[2020-05-07] MEDS ORDERED: PANTOPRAZOLE SODIUM 20 MG TABLET.DR PO SCH (10:00)
[2020-05-07] MEDS ORDERED: MELOXICAM 15 MG TABLET PO SCH (10:00)
[2020-05-07] MEDS ORDERED: LISINOPRIL 10 MG TABLET PO SCH (10:00)
[2020-05-07] MEDS ORDERED: FLUOXETINE HCL 20 MG CAPSULE PO SCH (10:00)
[2020-05-07] MEDS: BUPROPION HCL 75 MG TABLET PO SCH (11:12)
[2020-05-07 13:39] VITALS: BP 108/70
== END 2020-05-07 13:38 ==
LOC: ER 11:04
DX: J44.9 Chronic obstructive pulmonary disease, unspecified (principal); G89.4 Chronic pain syndrome; R42 Dizziness and giddiness; R53.1 Weakness; F17.200 Nicotine dependence, unspecified, uncomplicated; I10 Essential (primary) hypertension; E11.9 Type 2 diabetes mellitus without complications; G89.29 Other chronic pain; M54.5 Low back pain; Z91.81 History of falling
CPT/HCPCS: 93005; 99285; 96360; 36415; 82550; 83735; 85025; 85610; 85730; 82270; 80053; 84484; 71045; 70450; 71275; 93010; A9270 ×13; J7030; J3490